=== PATIENT | male | born 1970 | race African-American/Black ===

== ENCOUNTER 2016-08-30 11:08 | Inpatient (IN) | payer OTHER, MEDICARE ==
[~2016-08-30] VITALS: Ht 190.5 cm; Wt 98.9 kg
[~2016-08-30 11:08] MED LIST: ACAMPROSATE CA333 M1 PO; ATIVAN0.5 MG PO; BENZTROPINE MESY2 M1 PO; LITHIUM CARBON300 M6 PO; MIRALAX17 GM PO; NEURONTIN300 M1 PO; OLANZAPINE15 M1 PO; RISPERIDONE2 MG PO; TRAZODONE HCL100 M1 PO; ZYPREXA7.5 M1 PO
[2016-08-30] MEDS ORDERED: HALOPERIDOL2 M1 PO (11:30)
[2016-08-30] MEDS ORDERED: QUETIAPINE FUM400 M1 PO (11:33)
[2016-08-30] MEDS ORDERED: QUETIAPINE FUMA50 M1 PO (11:33)
[2016-08-30 12:20] LABS: ABSOLUTE BASOPHIL COUNT 0 /CUMM (0.0-0.2); ABSOLUTE EOSINOPHIL COUNT 0.1 /CUMM (0.0-0.7); ABSOLUTE GRANULOCYTE CT 3.6 /CUMM (1.4-6.5); ABSOLUTE LYMPH COUNT 2.4 /CUMM (1.2-3.4); ABSOLUTE MONOCYTE COUNT 0.8 /CUMM (0.10-0.60); BASOPHIL % 0.3 % (0.0-2.0); GRANULOCYTE % 52.2 % (42.2-75.2); HEMATOCRIT 41.3 % (42-52); MEAN CORPUSCULAR HGB 28.2 PG (27.0-31.0); MEAN CORPUSCULAR HGB CONC 32.5 G/DL (33.0-37.0); MEAN CORPUSCULAR VOLUME 86.8 FL (80.0-94.0); MEAN PLATELET VOLUME 8.5 FL (7.4-10.4); PLATELET COUNT 281 /CUMM (130-400); RED BLOOD CELL CT 4.76 /CUMM (4.70-6.10); WHITE BLOOD CELL COUNT 6.8 /CUMM (4.8-10.8)
--- NOTE | 2016-08-30 14:03 | ED PSYCHIATRIC COMPLAINT ---
History of Present Illness General Chief Complaint: ETOH/Drug Related Complaint Stated Complaint: BIBA, ETOH/LETHARGY Source: patient, EMS Exam Limitations: clinical condition, poor historian, intoxication Allergies Coded Allergies: codeine (Intermediate, HIVES 08/30/16) amoxicillin (UNKNOWN 08/30/16) desipramine (HIVES 08/30/16) haloperidol (LARYNGEAL DYSTONIA 08/30/16) Reconcile Medications Acamprosate Calcium 333 MG TABLET.DR 2 TAB PO TID ALCOHOL WITHDRAWAL ( Reported) Benztropine Mesylate 2 MG TABLET 1 TAB PO TID ANXIETY (Reported) Gabapentin (Neurontin) 300 MG CAPSULE 1 CAP PO 4 TIMES/DAY NERVES (Reported) Haloperidol 2 MG TABLET 1 TAB PO DAILY MENTAL HEALTH (Reported) Marrowstone Carbonate ([place] Carbonate ER) 300 MG TABLET.ER 1 TAB PO DAILY BIPOLAR (Reported) [place] Carbonate ([place] Carbonate ER) 300 MG TABLET.ER 2 TAB PO QPM BIPOLAR (Reported) Olanzapine (Zyprexa) 7.5 MG TABLET 1 TAB PO BID MENTAL HEALTH (Reported) Olanzapine 15 MG TABLET 1 TAB PO QPM MENTAL HEALTH (Reported) Quetiapine Fumarate 400 MG TABLET 1 TAB PO QPM MENTAL HEALTH (Reported) Quetiapine Fumarate 50 MG TABLET 1 TAB PO QPM MENTAL HEALTH (Reported) Trazodone HCl 100 MG TABLET 2 TAB PO QPM SLEEP (Reported) Triage Note: BIBA. 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 PT ALERT TO NAME AND CITY ONLY. IS DROWSY UPON ARRIVAL. MEDICS HAVE #18 TO LAC, EKG SINUS TACH RATE OF 120'S. Triage Nurses Notes Reviewed? yes Onset: Abrupt Duration: hour(s):, constant, continues in ED Timing: single episode today HPI: 46-year-old male with past medical history of bipolar depression brought in by ambulance for evaluation of lethargy. Patient was found by a psychiatric nurse this morning very lethargic with a empty bottle of vodka next to him. Patient has a long history of alcohol abuse and is on unknown medication to prevent him from drinking. Patient currently denies any pain but states she is very tired. He denies any other drug use. He states that he "drank too much today". Denies any suicidal ideation, homicidal ideation, chest pain, shortness of breath, abdominal pain, fevers, or any other associated symptoms. He states he's been taking his medications as directed. He also reports that he had a period of sobriety for a few months before he started drinking again 3 days ago. (JESUS EASTON PA-C) Vital Signs & Intake/Output Vital Signs & Intake/Output Vital Signs Date Time Temp Pulse Resp B/P B/P Pulse O2 O2 Flow FiO2 Mean Ox Delivery Rate 08/30 1932 98.0 83 16 131/79 99 Room Air 08/30 1701 96 19 141/91 99 Room Air 08/30 1305 97.1 98 114/70 97 08/30 1120 98.7 100 20 144/88 98 Room Air Past History Travel History Traveled to [place] past 21 day No Medical History Any Pertinent Medical History? 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 No (JESUS EASTON PA-C) Review of Systems Review of Systems Constitutional: Reports: weakness. EENTM: Reports: no symptoms. Respiratory: Reports: no symptoms. Cardiovascular: Reports: no symptoms. GI: Reports: no symptoms. Genitourinary: Reports: no symptoms. Musculoskeletal: Reports: no symptoms. Skin: Reports: no symptoms. Neurological/Psychological: Reports: see HPI, confusion. Hematologic/Endocrine: Reports: no symptoms. Immunologic/Allergic: Reports: no symptoms. All Other Systems: Reviewed and Negative (JESUS EASTON PA-C) Physical Exam Physical Exam General Appearance: well developed/nourished, no apparent distress, awake, lethargic, intoxicated Neurological/Psychiatric: no motor/sensory deficits, awake, agitated, normal mood/affect, calm, oriented x 3 Comments: General: Hemodynamically stable. Afebrile. Well-developed well-nourished person in no acute distress. Head: Atraumatic, normocephalic Eyes: EOMI bilaterally, PERRLA, conjunctiva are not injected, no discharge, no nystagmus, fundus grossly normal bilaterally Nose: Atraumatic, no rhinorrhea, mucosa is not erythematous, no epistaxis. Sinuses are non-tender Ears: TM pearly castro color bilaterally, external canal is clear, no discharge, hearing is normal Mouth: Appropriate dentition, no gingival bleeding, moist mucus membranes, no oral lesions, tonsils not erythematous or enlarged and free of exudate. Uvula rises midline. Neck: Supple, full active ROM, no lymphadenopathy, no midline tenderness to palpation, no thyromegaly, no tracheal deviation. Back: Non-tender, full active ROM, no scoliosis, no CVA tenderness Cardiovascular: regular rate and rhythm, no murmurs, rubs, or gallops. No JVD Respiratory: Chest is nontender. Regular respiratory rate and effort. No accessory muscle use. Lungs clear to auscultation bilaterally. Abdomen: Soft, non-tender, non-distended, no organomegaly. No rebound tenderness or guarding. Normoactive bowel sounds. Extremities: No edema. No gross deformities. No joint swelling. No calf swelling or tenderness. Full active and passive ROM. Strength 5/5 in upper and lower extremities. Peripheral pulses 2+ bilaterally, Patellar DTR 2+ Skin: Warm and dry. Appropriate turgor. No lesions or bruising. No appreciable rash on exposed skin. SAD PERSONS Done? patient not suicidal (JEMMA ALCANTAR,JESUS) Progress Differential Diagnosis: drug intoxication, drug overdose, drug withdrawal, electrolyte abnormality, hypoglycemia, hypothyroidism, IC hem/mass/tumor, meningitis, arrythmia Diagnostic Imaging: Viewed by Me: CT Scan. Discussed w/RAD: CT Scan. Initial ED EKG: no ST T wave changes, sinus tach Comments: PATIENT: MAURA DALEY PRESENT AGE: 46 PATIENT ACCOUNT NO: [id number] : 70 LOCATION: [facility] [place] ORDERING PHYSICIAN: JESUS EASTON PA-C SERVICE DATE: 08/30/163357 EXAM TYPE: CAT - CT HEAD WO IV CONTRAST EXAMINATION: CT HEAD WITHOUT CONTRAST CLINICAL INFORMATION: Altered mental status, lethargy. COMPARISON: 05/04/2014. TECHNIQUE: Contiguous axial images of the brain were obtained without IV contrast. DLP: 620 mGy-cm. FINDINGS: There are no pathologic extra-axial fluid collections. The lateral, third, fourth ventricles are nondilated and concordant with the appearance of the sulci. There is no evidence for acute intraparenchymal hemorrhage or infarct. There is neither mass nor mass effect. There is no shift of midline structures. The paranasal sinuses and mastoid air cells are clear. There are no osseous lesions. IMPRESSION: No evidence for acute intracranial injury. DICTATED BY: OLVIN CHERY MD DATE/TIME DICTATED:08/30/161502 DRY END OPERATOR:NAOMIE DATE/TIME TRANSCRIBED:08/30/161502 PATIENT: MAURA DALEY PRESENT AGE: 46 PATIENT ACCOUNT NO: [id number] : 70 LOCATION: [facility] [place] ORDERING PHYSICIAN: JESUS EASTON PA-C SERVICE DATE: 08/30/16 EXAM TYPE: CAT - CTA CHEST-PULMONARY EMBOLISM EXAMINATION: CT PULMONARY EMBOLISM STUDY CLINICAL INFORMATION: Tachypnea. Shortness of breath. COMPARISON: 05/04/2014.. TECHNIQUE: Contiguous helical images of the chest were obtained following the administration of IV contrast. Multiplanar reconstructions were performed. MIPS were obtained and reviewed. DLP: 547 mGy-cm. CONTRAST: 95 mL of Optiray 350 were administered without incident. FINDINGS: The heart is of normal size. There is no pericardial effusion. The great vessels are unremarkable. Specifically, there is no pulmonary arterial filling defect. There are filling defects present within the branches of the right lower lobe pulmonary artery. There are no chest wall masses. Review of lung windows demonstrates that there are neither pleural effusions nor pneumothoraces. There are no consolidations. There are no pulmonary parenchymal nodules. Limited evaluation of the upper abdomen demonstrates that the liver is of normal size and attenuation without focal lesions. Normal adrenal glands are identified. IMPRESSION: Pulmonary embolism within the branches of the right lower lobe pulmonary artery. The aforementioned was communicated to Dr. Jesus Easton at 1647 hours. DICTATED BY: OLVIN CHERY MD DATE/TIME DICTATED:08/30/161635 DRY END OPERATOR:NAOMIE DATE/TIME TRANSCRIBED:08/30/161635 CONFIDENTIAL, DO NOT COPY WITHOUT APPROPRIATE AUTHORIZATION. <Electronically signed in Other Vendor System> SIGNED BY: OLVIN CHERY MD 08/30/16 1651 (JEMMA ALCANTAR,JESUS) Plan of Care: Orders Procedure Date/time Status Regular Diet 08/31 B Active Admit to inpatient 08/30 1826 Active Add-on Test (ER Only) 08/30 1711 Active Add-on Test (ER Only) 08/30 1453 Active Add-on Test (ER Only) 08/30 1437 Active EKG 08/30 1435 Active URINALYSIS 08/30 1432 Complete ACETOMINOPHEN 08/30 1200 Complete THYROID STIMULATING HORMONE 08/30 1200 Complete TROPONIN LEVEL 08/30 1200 Complete SALICYLATE 08/30 1200 Complete PARTIAL THROMBOPLASTIN TIME 08/30 1200 Complete PROTHROMBIN TIME 08/30 1200 Complete MAGNESIUM 08/30 1200 Complete LITHIUM 08/30 1200 Complete D-DIMER 08/30 1200 Complete URINE DRUG SCREEN FOR ER ONLY 08/30 1156 Complete ETHANOL 08/30 1156 Complete COMPREHENSIVE METABOLIC PANEL 08/30 1156 Complete CBC WITHOUT DIFFERENTIAL 08/30 1156 Complete Current Medications Sig/Sebastian Start time Last Medication Dose Stop Time Status Admin Cyanocobalamin/ 1 BAG ONCE ONE 08/30 194 UNVr Thiamine/Pyridoxine 08/31 0344 (Vitamin in I.V.) Dextrose/Water 1,000 ML (D5W 1000) Heparin Sodium/ 25,000 UNIT Q24H 08/30 1714 UNVr 08/30 Dextrose 1757 (Heparin) Dextrose/Water 500 ML (D5W) Laboratory Tests 08/30/16 1432: Urine Opiates Screen < 100.00, Methadone Screen 45, Barbiturate Screen < 60, Ur Phencyclidine Scrn < 6.00, Amphetamines Screen < 100, U Benzodiazepines Scrn < 85, Urine Cocaine Screen < 50, Urine Cannabis Screen < 5.00, Urine Color YEL, Urine Clarity CLEAR, Urine pH 7.5, Ur Specific [place] 1.010, Urine Protein NEG, Urine Ketones NEG, Urine Nitrite NEG, Urine Bilirubin NEG, Urine Urobilinogen 0.2, Ur Leukocyte Esterase NEG, Ur Microscopic SEDIMENT EXAMINED, Urine RBC 1-3, Urine WBC RARE, Hyaline Casts RARE H, Urine Mucus RARE, Urine Hemoglobin TRACE- LYSED H, Urine Glucose NEG 08/30/16 1200: Anion Gap 16, Estimated GFR > 60, BUN/Creatinine Ratio 7.5, Glucose 109 H, Calcium 10.2, Magnesium 2.1, Total Bilirubin 0.7, AST 23, ALT 37, Alkaline Phosphatase 79, Troponin I < 0.01, Total Protein 8.2, Albumin 5.1 H, Globulin 3.1, Albumin/Globulin Ratio 1.6, TSH 1.970, PT 13.0 H, INR 1.24 H, APTT 29, D- Dimer High Sensitivty 746 H, CBC w Diff NO MAN DIFF REQ, RBC 4.76, MCV 86.8, MCH 28.2, RDW 16.0 H, MPV 8.5, Gran % 52.2, Lymphocytes % 34.5, Monocytes % 12.0 H, Eosinophils % 1.0, Basophils % 0.3, Absolute Granulocytes 3.6, Absolute Lymphocytes 2.4, Absolute Monocytes 0.8 H, Absolute Eosinophils 0.1, Absolute Basophils 0, PUBS MCHC 32.5 L, Salicylates < 1.0, Acetaminophen < 10.0 L, Marrowstone 0.7, Serum Alcohol 36.0 2:30 PM: Patient seen and evaluated. He'll be given a liter of normal saline and she is slightly tachycardic. We'll also have basic blood work CT scan of his head EKG and additional blood work to evaluate altered mental status and tachycardia. 4 PM: Patient's d-dimer came back elevated TO 746. We'll get a CTA to rule out pulmonary embolism as patient was tachycardic and short of breath. 5 PM: CTA was positive for pulmonary embolism. Patient was moved to a monitored room. He'll be heparinized PTT and INR ordered. Rectal exam was done and stool is heme-negative. Patient will be admitted for further evaluation. No signs of right heart strain. Patient additionally will need to have [place] monitoring as he has a history of alcohol abuse. Hospitalist paged. Patient will be admitted to general medicine. (JESUS EASTON PA-C) Departure Departure Disposition: STILL A PATIENT Condition: Stable Clinical Impression Primary Impression: Pulmonary embolism Qualifiers: Pulmonary embolism type: other Chronicity: acute Acute cor pulmonale presence: without acute cor pulmonale Qualified Code: I26.99 - Other pulmonary embolism without acute cor pulmonale Referrals: KERA ALVARENGA MD (PCP/Family) Departure Forms: Customer Survey General Discharge Information Admission Note Spoke With: JENNIFER HERNDON MD Documentation of Exam: Documentation of any treatments & extenuating circumstances including Concerns Regarding Discharge (functional status, medication knowledge or non-compliance, living conditions, etc.) that warrant an admission rather than observation: [ Monitoring of vital signs, serial labs, hypercoagulability workup, medication adjustment, IV heparin, cardiology consult, pulmonary consult, CIWA monitoring] (JEMMA ALCANTAR,JESUS) PA/BLUEPRINT CLERK Co-Sign Statement Statement: ED Attending supervision documentation- [] I saw and evaluated the patient. I have also reviewed all the pertinent lab results and diagnostic results. I agree with the findings and the plan of care as documented in the PA's/BLUEPRINT CLERK's documentation. [X] I have reviewed the ED Record and agree with the PA's/BLUEPRINT CLERK's documentation. [] Additions or exceptions (if any) to the PAs/BLUEPRINT CLERK's note and plan are summarized below: [] (LILLIANA RIBEIRO,DEBBIE Mcmullen)
[2016-08-30 14:55] LABS: LITHIUM 0.7 mmol/L (0.6-1.2)
--- NOTE | 2016-08-30 15:19 | CT SCAN REPORT ---
EXAMINATION: CT HEAD WITHOUT CONTRAST CLINICAL INFORMATION: Altered mental status, lethargy. COMPARISON: 05/04/2014. TECHNIQUE: Contiguous axial images of the brain were obtained without IV contrast. DLP: 620 mGy-cm. FINDINGS: There are no pathologic extra-axial fluid collections. The lateral, third, fourth ventricles are nondilated and concordant with the appearance of the sulci. There is no evidence for acute intraparenchymal hemorrhage or infarct. There is neither mass nor mass effect. There is no shift of midline structures. The paranasal sinuses and mastoid air cells are clear. There are no osseous lesions. IMPRESSION: No evidence for acute intracranial injury.
--- NOTE | 2016-08-30 16:51 | CT SCAN REPORT ---
EXAMINATION: CT PULMONARY EMBOLISM STUDY CLINICAL INFORMATION: Tachypnea. Shortness of breath. COMPARISON: 05/04/2014.. TECHNIQUE: Contiguous helical images of the chest were obtained following the administration of IV contrast. Multiplanar reconstructions were performed. MIPS were obtained and reviewed. DLP: 547 mGy-cm. CONTRAST: 95 mL of Optiray 350 were administered without incident. FINDINGS: The heart is of normal size. There is no pericardial effusion. The great vessels are unremarkable. Specifically, there is no pulmonary arterial filling defect. There are filling defects present within the branches of the right lower lobe pulmonary artery. There are no chest wall masses. Review of lung windows demonstrates that there are neither pleural effusions nor pneumothoraces. There are no consolidations. There are no pulmonary parenchymal nodules. Limited evaluation of the upper abdomen demonstrates that the liver is of normal size and attenuation without focal lesions. Normal adrenal glands are identified. IMPRESSION: Pulmonary embolism within the branches of the right lower lobe pulmonary artery. The aforementioned was communicated to Dr. Dedrick Suarez at 1647 hours.
[2016-08-30 17:21] LABS: PTT 29 SEC (25-37)
--- NOTE | 2016-08-30 20:03 | History & Physical ---
BROOKE RIBEIRO,[facility] 08/30/16 2002: General Information and HPI MD Statement: I have seen and personally examined MAURA DALEY and documented this H&P. The patient is a 46 year old M who presented with a patient stated chief complaint of [too much alcohol]. Source of Information: patient Exam Limitations: confusion History of Present Illness: Patient is a 46 yo M with pmhx of bipolar, schizophrenia, depression, last admitted 05/04/14 for etoh withdrawal presenting for altered MS after being found very lethargic by his visiting nurse with a bottle of vodka next to the patient. The patient stated today that he drank pint of vodka and was smoking cigarettes. He then fed his cat and dog and then "lost it". The patient states that he passed out and does not remember anything since feeding his pets. When asked if he knew the reason why he was being admitted in the hospital, the patient states he was here for drinking too much alcohol. When the patient was asked again about what happened by the resident, the patient stated he was smoking weed, drinking, and taking his meds simultaneously.The patient did not remember seeing our attending who was briefly in the room with me during our encounter before she left. When I asked how often the patient drinks alcohol he seemed confused. I then asked whether he drinks every day, 3-4 days/week or 4-5 times a week, the patient stated he did not drink that often. He said that he drinks "once in a blue morales". However, he told our attending that he has been sober for the past 2 nights but was drinking for the past 6 days straight prior to his sobriety period. Patient reports no suicidal ideation. He states he has a great relationship with his girlfriend. He is currently unemployed on Social Security. He has a visiting nurse to help him with his healthcare. Allergies/Medications Allergies: Coded Allergies: codeine (Intermediate, HIVES 08/30/16) amoxicillin (UNKNOWN 08/30/16) desipramine (HIVES 08/30/16) Home Med list Acamprosate Calcium 333 MG TABLET. 2 TAB PO TID ALCOHOL WITHDRAWAL ( Reported) Benztropine Mesylate 2 MG TABLET 1 TAB PO TID ANXIETY (Reported) Gabapentin (Neurontin) 300 MG CAPSULE 1 CAP PO 4 TIMES/DAY NERVES (Reported) Haloperidol 2 MG TABLET 1 TAB PO DAILY MENTAL HEALTH (Reported) Frost Carbonate (Frost Carbonate ER) 300 MG TABLET.ER 1 TAB PO DAILY BIPOLAR (Reported) Frost Carbonate (Frost Carbonate ER) 300 MG TABLET.ER 2 TAB PO QPM BIPOLAR (Reported) Olanzapine (Zyprexa) 7.5 MG TABLET 1 TAB PO BID MENTAL HEALTH (Reported) Olanzapine 15 MG TABLET 1 TAB PO QPM MENTAL HEALTH (Reported) Quetiapine Fumarate 400 MG TABLET 1 TAB PO QPM MENTAL HEALTH (Reported) Quetiapine Fumarate 50 MG TABLET 1 TAB PO QPM MENTAL HEALTH (Reported) Trazodone HCl 100 MG TABLET 2 TAB PO QPM SLEEP (Reported) Past History Travel History Traveled to [place] past 21 day No Medical History Neurological: NONE EENT: NONE Cardiovascular: NONE Respiratory: asthma Gastrointestinal: NONE Hepatic: NONE Renal: NONE Musculoskeletal: NONE Psychiatric: bipolar disease, schizoprenia, depression Endocrine: NONE Blood Disorders: NONE Cancer(s): NONE N[employer]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 but seems .5 -1pint vodka/day Illicit Drug Use: marijuana Employment History Employment Unemployed Review of Systems Review of Systems Constitutional: Denies: chills, diaphoresis, fever. EENTM: Denies: visual changes. Cardiovascular: Denies: chest pain. Respiratory: Denies: cough, short of breath. GI: Denies: abdominal pain, nausea, vomiting. Genitourinary: Denies: dysuria, frequency, hematuria. Exam & Diagnostic Data Last 24 Hrs of Vital Signs/I&O Vital Signs Date Time Temp Pulse Resp B/P B/P Pulse O2 O2 Flow FiO2 Mean Ox Delivery Rate 08/31 0027 98.4 79 20 128/88 97 Room Air 08/307 98.6 75 20 130/92 97 08/30 2121 98.2 83 16 132/74 97 Room Air 08/30 1932 98.0 83 16 131/79 99 Room Air 08/30 1701 96 19 141/91 99 Room Air 08/30 1305 97.1 98 114/70 97 08/30 1120 98.7 100 20 144/88 98 Room Air Intake & Output 08/31 0800 08/31 0000 08/30 1600 Intake Total 1000 Output Total 800 Balance -800 1000 Intake, IV 1000 Output, Urine 800 Patient 220 lb Weight Weight Estimated Measurement Method Physical Exam General Appearance Alert, Oriented X3, Cooperative, No Acute Distress, patient was oriented to person, place, month, and president. however patient appears lethargic and takes longer than normal to answer questions. he has different responses regarding his HPI for his etoh and tobacco use HEENT Atraumatic, PERRLA, EOMI, CN2-12 intact, dry oral mucosa Neck Supple, no tracheal devitation, tenderness, or lymphadenopathy Cardiovascular Regular Rate, Normal S1, Normal S2 Lungs Clear to Auscultation, Normal Air Movement Abdomen Normal Bowel Sounds, Soft, No Tenderness, no abd scars Neurological dyskinesia of eye and hands. patient states this is a chronic issue Extremities No Edema, Normal Pulses, 5/5 peripheral strength b/l for UE and LE Last 24 Hrs of Labs/[place]: Laboratory Tests 08/31/16 0005: APTT Pending 08/30/16 1432: Urine Opiates Screen < 100.00, Methadone Screen 45, Barbiturate Screen < 60, Ur Phencyclidine Scrn < 6.00, Amphetamines Screen < 100, U Benzodiazepines Scrn < 85, Urine Cocaine Screen < 50, Urine Cannabis Screen < 5.00, Urine Color YEL, Urine Clarity CLEAR, Urine pH 7.5, Ur Specific [place] 1.010, Urine Protein NEG, Urine Ketones NEG, Urine Nitrite NEG, Urine Bilirubin NEG, Urine Urobilinogen 0.2, Ur Leukocyte Esterase NEG, Ur Microscopic SEDIMENT EXAMINED, Urine RBC 1-3, Urine WBC RARE, Hyaline Casts RARE H, Urine Mucus RARE, Urine Hemoglobin TRACE- LYSED H, Urine Glucose NEG 08/30/16 1200: Anion Gap 16, Estimated GFR > 60, BUN/Creatinine Ratio 7.5, Glucose 109 H, Calcium 10.2, Magnesium 2.1, Total Bilirubin 0.7, AST 23, ALT 37, Alkaline Phosphatase 79, Troponin I < 0.01, Total Protein 8.2, Albumin 5.1 H, Globulin 3.1, Albumin/Globulin Ratio 1.6, TSH 1.970, PT 13.0 H, INR 1.24 H, APTT 29, D- Dimer High Sensitivty 746 H, CBC w Diff NO MAN DIFF REQ, RBC 4.76, MCV 86.8, MCH 28.2, RDW 16.0 H, MPV 8.5, Gran % 52.2, Lymphocytes % 34.5, Monocytes % 12.0 H, Eosinophils % 1.0, Basophils % 0.3, Absolute Granulocytes 3.6, Absolute Lymphocytes 2.4, Absolute Monocytes 0.8 H, Absolute Eosinophils 0.1, Absolute Basophils 0, PUBS MCHC 32.5 L, Salicylates < 1.0, Acetaminophen < 10.0 L, Frost 0.7, Serum Alcohol 36.0 Diagnostic Data Other Results CTA FINDINGS: The heart is of normal size. There is no pericardial effusion. The great vessels are unremarkable. Specifically, there is no pulmonary arterial filling defect. There are filling defects present within the branches of the right lower lobe pulmonary artery. There are no chest wall masses. Review of lung windows demonstrates that there are neither pleural effusions nor pneumothoraces. There are no consolidations. There are no pulmonary parenchymal nodules. Limited evaluation of the upper abdomen demonstrates that the liver is of normal size and attenuation without focal lesions. Normal adrenal glands are identified. IMPRESSION: Pulmonary embolism within the branches of the right lower lobe pulmonary artery. CT HEAD There are no pathologic extra-axial fluid collections. The lateral, third, fourth ventricles are nondilated and concordant with the appearance of the sulci. There is no evidence for acute intraparenchymal hemorrhage or infarct. There is neither mass nor mass effect. There is no shift of midline structures. The paranasal sinuses and mastoid air cells are clear. There are no osseous lesions. IMPRESSION: No evidence for acute intracranial injury Assessment/Plan Assessment: Patient is a 46 yo M with pmhx of bipolar, schizophrenia, depression, last admitted 05/04/14 for etoh withdrawal presenting for lethragy due to simultaneous drinking pint of vodka, smoking cigarettes/weed, and taking his medications and also found to have a PE of his right lower lobe pulmonary artery. As Ranked By This Provider Problem List: 1. Pulmonary embolism Assessment/Plan Patient is a 46 yo M with pmhx of bipolar, schizophrenia, depression, last admitted 05/04/14 for etoh withdrawal presenting for lethragy due to simultaneous drinking pint of vodka, smoking cigarettes/weed, and taking his medications and also found to have a PE of his right lower lobe pulmonary artery. His d- dimer was 746,PT 13, INR 1.24. At this time the cause of his PE is unknown. He did state to our attending that he has a twin brother with colon cancer. We will need to confirm this history from the patient's girlfriend. The patient states that he has never had a colonoscopy. The patient denies any trauma, immobility/recent travel, any history of previous DVTs/PE/coagulopathies, any family history of clots,or any hormone use. His initial troponins were less than 0.01. We will place a consult with hematology oncology for further management. We will also get a repeat EKG, troponins and an echocardiogram. We will treat the patient with heparin for his PE and transition to apixaban tomorrow. Other possible causes of his blood counts may be unknown genetic causes such as: Factor V Leiden, prothrombin mutation, hyper homocystinemia, decrease levels of anti-thrombin/protein C/protein S. The patient will most likely need a colonoscopy if family history is + for colon cancer. -f/u cbc,bmp -guaiac all stools, monitor H/H and plt count while on heparin -Confirm family history of colon cancer?, outpt colonoscopy needed if positive FH -Follow-up repeat EKG, troponins -place echocardiogram -Continue heparin and transition to apixaban tomorrow -f/u heme onc consult Qualifiers Pulmonary embolism type: other Chronicity: acute Acute cor pulmonale presence: without acute cor pulmonale Qualified Code: I26.99 - Other pulmonary embolism without acute cor pulmonale 2. Alcohol abuse Assessment/Plan The patient was last admitted to [facility] on 05/04/2014 for alcohol detoxification. We will start him on alcohol detoxification with CIWA protocol and Ativan. We will also start neuro checks and D5 1 liter banana bag with folate, thiamine, B12. The patient will need a social work consult. -Continue banana bag, replete lytes as needed -Continue CIWA protocol, neurochecks -Ativan 2 mg every 6 hours by mouth -f/u social work consult 3. Bipolar disorder Assessment/Plan The patient has a history of bipolar disorder maintained on lithium. We will continue him on his home dose of lithium and check his blood lithium levels. The patient will need a psych consult for futher management. -Follow-up lithium levels -Continue lithium 600 mg by mouth at nighttime -f/u psych consult 4. Schizophrenia Assessment/Plan The patient has a history of schizophrenia. We'll continue him on his home medications. We will need a psych consult for his psychiatric disorders to help with management. -Olanzapine 15 mg by mouth at nighttime and olanzapine 7.5 mg by mouth twice a day -Quetiapine 450 mg by mouth at nighttime -Benztropine 2 mg by mouth 3 times a day -Haloperidol 2 mg by mouth daily -f/u psych consult as stated above. 5. Nicotine dependence Assessment/Plan The patient is a current smoker. He was unclear about how many cigarettes he smokes. We will begin him on a nicotine patch. -continue nicotine patch 14mg daily 6. Neuropathic pain Assessment/Plan The patient has a history of neuropathic pain. We will continue his home medications. -continue gabapentin 300mg 4 times per day 7. DVT prophylaxis Assessment/Plan Continue heparin for PE 8. Full code status Core Measures/Miscellaneous Acute Coronary Syndrome ACS Diagnosis: No Cerebrovascular Accident CVA/TIA Diagnosis: No Congestive Heart Failure CHF Diagnosis: No VTE (View Protocol) VTE Risk Factors: Acute medical illness, Age > 40, Smoking No [facility] VTE prophylaxis d/t: No contraindications No VTE Pharm Prophylaxis d/t: No contraindications VTE Diagnosis: Yes VTE Type: Pulmonary Embolism VTE Confirmed by (Test): CT CHEST ANGIOGRAM Sepsis (View Protocol) Severe Sepsis Present: No Septic Shock Septic Shock Present: No Miscellaneous Documentation Attending Case Discussed With: JENNIFER HERNDON MD Primary Care Physician: KERA ALVARENGA MD Patient sees these Specialists NA Level of Patient Care: General Medicine WILLIAN JOHN MD 08/30/16 2006: Resident Review Statement Resident Statement: examined this patient, discussed with development intern, agreed with development intern Other Findings: Mr Daley is a 46-year-old male with a past medical history of alcohol abuse, bipolar, schizophrenia, depression who was brought into the emergency department after being found very lethargic by visiting nurse. Patient states that he normally has a history of consuming alcohol on a daily basis (drinks between 1/2 - 1 pint of vodka per day), however 12 hours prior to admission he consumed an excessive amount of alcohol stating that "he felt like it". Patient also reports that his girlfriend and her son has travelled out of town. Briefly spoke with the patient's girlfriend on the telephone who was travelling in [place] who stated that this patient is a history of consuming excessive alcohol when she leaves town. She stated that the patient may have been admitted to [facility] over the last few months for alcohol withdrawal. Patient does have a history of alcohol abuse. He was last admitted to [facility] where he underwent alcohol detoxification on 05/04/2016. At the time of clinical interaction, he denied any suicidal or homicidal ideation. He Is a current every day smoker. He denies any recreational drug use. Denies any family history of any acute illnesses although did mention to the attending physician that he has a twin brother who has colon cancer. ROS: Patient denied any chest pain, fever, chills, nausea, vomiting. He denied any shortness of breath, and dyspnea on exertion. E: Temperature for the time of admission 98.7, RR 20, BP 144/88, heart rate 100 saturating 98% room air. HEENT: extraocular motion intact, no nystagmus. Pupils equally round and reactive to light and accommodation. Nose is atraumatic. External auditory canal and Tympanic membranes clear. Pharynx normal. No swelling or edema. Mucous membranes dry. Neck: Supple, no lymphadenopathy, normal range of motion without pain or tenderness Back: Nontender. Cardiovascular: Regular rate and rhythm no murmurs rubs or gallops. Respiratory: Chest nontender. Abdomen: Soft, tender with light palpation. nondistended, no appreciable organomegaly. Bowel sounds normal. No ascites, no rebound or guarding. Extremity: No edema, no calf tenderness to palpation, normal and equal pulses. Neuro: Alert oriented to person and place,motor sensory normal, CN II to XII wnl. Pupils Dilated ++ L: The time of admission WBC 6.8. H&H 13.4/41.3. Platelets 281. PT 13.0, INR 1.24, d-dimer was done owing to tachycardia which is 746. Sodium 147. Chloride 111. Carbon dioxide 19. Anion gap 16. Cr 1.2. I: Chest CTA: Pulmonary embolism within the branches of the right lower lobe pulmonary artery. Head CT: IMPRESSION: No evidence for acute intracranial injury. A/P Mr Daley is a 46-year-old male with a past medical history of alcohol abuse, bipolar, schizophrenia, depression who was brought into the emergency department after being found very lethargic by visiting nurse. #Altered Mental Status Patient is likely altered owing to extensive use of alcohol in the setting of multiple drug interactions which he takes for his mood disorders. Hold all medications to a.m. If the patient sedated can continue home medications. Check lithium levels in a.m. Begin the patient on scheduled Ativan 2.0 milligrams every 4 Hours. Ativan drip as needed when necessary, for CIWA > 8. Continue multivitamin, continue folate, Banana bag given at the time of admission. Social work consultation in a.m. And passed bedside swallow done at the time the emergency department. We'll maintain seizure precautions and aspiration precautions. #Acute pulmonary embolism. The time of our interaction he was asymptomatic. Denies any recent travel, immobility, history of cancer or any trauma and injury. Obtain hematology and oncology consultation in a.m. Patient might be eligible to be transitioned to Eliquis in a.m. Would likely need therapy for 6 months. Echocardiogram in a.m. to look for any evidence of right-sided heart strain. Patient will likely need to follow-up with primary care physician and be considered for coloscopy if family history is positive for oncologic disease as mentioned during clinical encounter questionable twin brother. #History of depression, bipolar, mood disorder. Continue haloperidol, Zyprexa, lithium. Follow-up lithium levels in a.m. Target lithium level should be between 0.4-0.8 Obtain psych consult in a.m. #History of Pain Neuropathic pain continue gabapentin. #History smoking. Continue nicotine patch when necessary. #DVT prophylaxis Heparin drip. #Code Full code YANICK RIBEIRO, [facility] 08/31/16 0010: Attending MD Review Statement Attending Statement Attending MD Statement: examined this patient, discuss w/resident/PA/LABOR RELATIONS REPRESENTATIVE, agreed w/resident/PA/LABOR RELATIONS REPRESENTATIVE Attending Assessment/Plan: 46 yo M smoker, with h/o alcohol abuse, bipolar disorder, PTSD, asthma, is BIBA after visiting nurse found him to be lethargic with change in mental status. Patient is awake, alert, oriented x2, but his history is vague. He reports not drinking too much but then states he drinks 1/2 to 1 pint of vodka daily with few days of sobreity in between. His last drink was this morning. He denies h/o alcohol withdrawal seizures. Denies drug use, no SI or HI. He has a visiting nurse who comes in everyday to give his meds. Last detox was at [facility] 2014. He has what seems like 'dystonia' probably from antipsychotic med use. Patient reports that this is chronic. Patient states he has been active and has not had any period of immobility. He denies personal or family h/o VTE. No recent travel , hormone use or cancer diagnosis. He does reports h/o colon cancer in his twin brother (we need to validate this information with his ). Patient denies chest pain, dyspnea, lightheadedness or palpitations. VSS. Labs: H/H 13.4/41.3, INR 1.24, D-dimer 746, Na 147, bicarb 19, creat 1.2, trop neg, TSH 1.970. UA n eg. Utox neg. Tylenol and salicylate level neg. Alcohol 36, Frost level 0.7. Head CT: neg. CTA: PE within branches of right lower lobe pulmonary artery. EKG: Sinus tachycardia. 1. Acute unprovoked PE. GM admit, IV heparin per PTT protocol. Guaiac all stools , monitor H/H and Platelet count while on heparin. Serial EKG and troponin to rule out ACS. Obtain echo to assess for right heart strain. Hematology consult in AM. Plan to transition to NOACs in AM. 2. Lethargy, ?altered mentation in the setting of alcohol use, Utox is essentially negative. Also, alcohol levels are not that high. Drug induced encephalopathy given patient is on multiple psych meds. We will place him on CIWA protocol, neurochecks, IV ativan per CIWA, PO scheduled ativan. Banana bag. Get Psych and social work consult. Resume psych meds as per their recommendations. DVT ppx IV heparin. Full code.
[2016-08-30 22:37] VITALS: BP 130/92
[2016-08-31] VITALS (8 sets, daily range): BP systolic 106–128; BP diastolic 76–88
--- NOTE | 2016-08-31 00:10 | Admission Certification ---
Admission Certification Certification Statement - As attending physician, I certify that at the time of - admission, based on clinical presentation, severity of - symptoms, need for further diagnostic testing and - therapeutic interventions, and risk of adverse outcomes - without in-hospital treatment, in my clinical assessment, - this patient requires an acute hospital stay for a minimum - of two nights or longer. I have also considered psychsocial - factors such as support system, advanced age, financial - issues, cognitive issues, and failed out-patient treatments, - past re-admission history, safety of patient, and lack of - compliance as applicable. Specific rationale supporting this admission is: Alcohol detox, new unprovoked pulmonary embolism.
[2016-08-31 01:10] LABS: PTT 81 SEC (25-37)
--- NOTE | 2016-08-31 07:11 | Cons- Hematology ---
General Information and HPI Consulting Request Date of Consult: 08/31/16 Requested By: YANICK RIBEIRO,JENNIFER History of Present Illness: 46-year-old gentleman admitted to the hospital with altered mental status found to have a pulmonary embolism on CTA chest. Currently the patient is somnolent from medication. As per the chart, the patient has a history of psychiatric illness as well as alcohol abuse. No mention of significant shortness of breath chest pain or hemoptysis as noted in the chart. There is a questionable history that his twin brother has colon cancer and the patient has not undergone colonoscopy. Allergies/Medications Allergies: Coded Allergies: codeine (Intermediate, HIVES 08/30/16) amoxicillin (UNKNOWN 08/30/16) desipramine (HIVES 08/30/16) haloperidol (LARYNGEAL DYSTONIA 08/30/16) Home Med List: Acamprosate Calcium 333 MG TABLET.DR 2 TAB PO TID ALCOHOL WITHDRAWAL ( Reported) Benztropine Mesylate 2 MG TABLET 1 TAB PO TID ANXIETY (Reported) Gabapentin (Neurontin) 300 MG CAPSULE 1 CAP PO 4 TIMES/DAY NERVES (Reported) Haloperidol 2 MG TABLET 1 TAB PO DAILY MENTAL HEALTH (Reported) [place] Carbonate ([place] Carbonate ER) 300 MG TABLET.ER 1 TAB PO DAILY BIPOLAR (Reported) [place] Carbonate ([place] Carbonate ER) 300 MG TABLET.ER 2 TAB PO QPM BIPOLAR (Reported) Olanzapine (Zyprexa) 7.5 MG TABLET 1 TAB PO BID MENTAL HEALTH (Reported) Olanzapine 15 MG TABLET 1 TAB PO QPM MENTAL HEALTH (Reported) Quetiapine Fumarate 400 MG TABLET 1 TAB PO QPM MENTAL HEALTH (Reported) Quetiapine Fumarate 50 MG TABLET 1 TAB PO QPM MENTAL HEALTH (Reported) Trazodone HCl 100 MG TABLET 2 TAB PO QPM SLEEP (Reported) Current Medications: Current Medications Sig/Sebastian Start time Last Medication Dose Route Stop Time Status Admin Benztropine Mesylate 2 MG TID 08/31 1000 AC PO Cyanocobalamin/ 1 BAG ONCE ONE 08/30 1944 DC 08/30 Thiamine/Pyridoxine IV 08/31 Dextrose/Water 1,000 ML Folic Acid 1 MG DAILY 08/31 1000 AC PO Gabapentin 300 MG 4 TIMES/DAY 08/31 1000 AC PO Haloperidol 2 MG DAILY 08/31 1000 AC PO Heparin Sodium 0 .STK-MED ONE 08/30 1733 DC (Porcine) .ROUTE Heparin Sodium 5,000 UNIT ONCE ONE 08/30 1715 DC 08/30 (Porcine) IV 08/30 1716 1757 Heparin Sodium/ 25,000 UNIT Q24H 08/30 1715 AC 08/30 Dextrose IV 1757 Dextrose/Water 500 ML [place] Carbonate 600 MG QPM 08/31 2200 AC PO [place] Carbonate 300 MG DAILY 08/31 1000 AC PO Lorazepam 2 MG Q6 08/30 2359 AC 08/30 PO 2341 Lorazepam 0 Q1P PRN 08/30 2300 AC IV Multivitamins 1 TAB DAILY 08/31 1000 AC PO Nicotine 14 MG DAILY PRN 08/31 0430 AC TOP Olanzapine 15 MG QPM 08/31 2200 AC PO Olanzapine 7.5 MG BID 08/31 1000 AC PO Quetiapine Fumarate 450 MG QPM 08/31 2200 AC PO Sodium Chloride 1,000 ML BOLUS ONE 08/30 1445 DC 08/30 IV 08/30 1544 1440 Review of Systems Review of Systems: 12 point review of system is unobtainable Past History Travel History Traveled to [place] past 21 day No Medical History Blood Transfusion Hx: No Neurological: NONE EENT: NONE Cardiovascular: NONE Respiratory: asthma Gastrointestinal: NONE Hepatic: NONE Renal: NONE Musculoskeletal: NONE Psychiatric: bipolar disease, schizoprenia depression Endocrine: NONE Blood Disorders: NONE Cancer(s): 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 but seems .5 -1pint vodka/day Illicit Drug Use: marijuana Employment History Employment: Unemployed Exam & Diagnostic Data Vital Signs and I&O Vital Signs Date Time Temp Pulse Resp B/P B/P Pulse O2 O2 Flow FiO2 Mean Ox Delivery Rate 08/31 0600 98.2 83 20 118/84 08/31 0409 98.2 83 20 118/84 97 Room Air 08/31 0400 98.2 83 20 118/84 08/31 0027 98.4 79 20 128/88 97 Room Air 08/31 0000 98.4 79 20 128/88 08/30 2330 97 Room Air 08/307 98.6 75 20 130/92 97 08/301 98.2 83 16 132/74 97 Room Air 08/30 1932 98.0 83 16 131/79 99 Room Air 08/30 1701 96 19 141/91 99 Room Air 08/30 1305 97.1 98 114/70 97 08/30 1120 98.7 100 20 144/88 98 Room Air Intake & Output 08/31 0800 08/31 0000 08/30 1600 Intake Total 1000 1000 Output Total 950 800 Balance 50 -800 1000 Intake, IV 800 1000 Intake, Oral 200 Output, Urine 950 800 Patient 218 lb 220 lb Weight Weight Reported by Patient Estimated Measurement Method Gen.: in NAD, somnolent ENT: Sclera anicteric Chest: Normal respiratory effort, clear breath sounds Cor: RRR, no extra sounds Abdomen: Soft, bowel sounds present, no tenderness, no rebound Extremities: Without clubbing, cyanosis, questionable right lower extremity edema Neurology: Somnolent Skin: No rashes Last 48 Hours of Lab Results: Laboratory Tests 08/31 08/30 0005 1432 Coagulation APTT (25 - 37 SEC) 81 H Toxicology Urine Opiates Screen (>2000 NG/ML) < 100.00 Methadone Screen (>300 NG/ML) 45 Barbiturate Screen (>200 NG/ML) < 60 Ur Phencyclidine Scrn (>25 NG/ML) < 6.00 Amphetamines Screen (>1000 NG/ML) < 100 U Benzodiazepines Scrn (>200 NG/ML) < 85 Urine Cocaine Screen (>300 NG/ML) < 50 Urine Cannabis Screen (>50 NG/ML) < 5.00 Urines Urine Color (YEL,AMB,STR) YEL Urine Clarity (CLEAR) CLEAR Urine pH (5.0 - 8.0) 7.5 Ur Specific [place] (1.001 - 1.035) 1.010 Urine Protein (NEG,<30 MG/DL) NEG Urine Ketones (NEG) NEG Urine Nitrite (NEG) NEG Urine Bilirubin (NEG) NEG Urine Urobilinogen (0.1 - 1.0 EU/dl) 0.2 Ur Leukocyte Esterase (NEG) NEG Ur Microscopic SEDIMENT EXAMINED Urine RBC (0 - 5 /HPF) 1-3 Urine WBC (0 - 2 /HPF) RARE Hyaline Casts (0/LPF) RARE H Urine Mucus (FEW,NONE) RARE Urine Hemoglobin (NEG) TRACE-LYSED H Urine Glucose (N MG/DL) NEG 08/30 1200 Chemistry Sodium (137 - 145 mmol/L) 147 H Potassium (3.5 - 5.1 mmol/L) 4.3 Chloride (98 - 107 mmol/L) 111 H Carbon Dioxide (22 - 30 mmol/L) 19 L Anion Gap (5 - 16) 16 BUN (9 - 20 mg/dL) 9 Creatinine (0.7 - 1.2 mg/dL) 1.2 Estimated GFR (>60 ml/min) > 60 BUN/Creatinine Ratio (7 - 25 %) 7.5 Glucose (65 - 99 mg/dL) 109 H Calcium (8.4 - 10.2 mg/dL) 10.2 Magnesium (1.6 - 2.3 mg/dL) 2.1 Total Bilirubin (0.2 - 1.3 mg/dL) 0.7 AST (17 - 59 U/L) 23 ALT (21 - 72 U/L) 37 Alkaline Phosphatase (< 127 U/L) 79 Troponin I (<0.11 ng/ml) < 0.01 Total Protein (6.3 - 8.2 g/dL) 8.2 Albumin (3.5 - 5.0 g/dL) 5.1 H Globulin (1.9 - 4.2 gm/dL) 3.1 Albumin/Globulin Ratio (1.1 - 2.2 %) 1.6 TSH (0.270 - 4.200 uIU/mL) 1.970 Coagulation PT (9.4 - 12.5 SEC) 13.0 H INR (0.90 - 1.17) 1.24 H APTT (25 - 37 SEC) 29 D-Dimer High Sensitivty (0 - 243 ng/ml) 746 H Hematology CBC w Diff NO MAN DIFF REQ WBC (4.8 - 10.8 /CUMM) 6.8 RBC (4.70 - 6.10 /CUMM) 4.76 Hgb (14.0 - 18.0 G/DL) 13.4 L Hct (42 - 52 %) 41.3 L MCV (80.0 - 94.0 FL) 86.8 MCH (27.0 - 31.0 PG) 28.2 RDW (11.5 - 14.5 %) 16.0 H Plt Count (130 - 400 /CUMM) 281 MPV (7.4 - 10.4 FL) 8.5 Gran % (42.2 - 75.2 %) 52.2 Lymphocytes % (20.5 - 51.1 %) 34.5 Monocytes % (1.7 - 9.3 %) 12.0 H Eosinophils % (0 - 5 %) 1.0 Basophils % (0.0 - 2.0 %) 0.3 Absolute Granulocytes (1.4 - 6.5 /CUMM) 3.6 Absolute Lymphocytes (1.2 - 3.4 /CUMM) 2.4 Absolute Monocytes (0.10 - 0.60 /CUMM) 0.8 H Absolute Eosinophils (0.0 - 0.7 /CUMM) 0.1 Absolute Basophils (0.0 - 0.2 /CUMM) 0 PUBS MCHC (33.0 - 37.0 G/DL) 32.5 L Toxicology Salicylates (0 - 20.0 mg/dL) < 1.0 Acetaminophen (10.0 - 30.0 ug/mL) < 10.0 L Clemmons (0.6 - 1.2 mmol/L) 0.7 Serum Alcohol (<10 MG/DL) 36.0 Imaging/Other Studies: CTA chest-pulmonary emboli Assessment/Plan Assessment: Possible unprovoked pulmonary embolism. Family history is unobtainable for thrombophilia. During the patient is being heparinized with anticipation conversion to an oral anticoagulant. Recommend- Doppler ultrasound of lower extremities Hypercoagulable workup to include Protein C Protein S No need to obtain anti-thrombin 3 given therapeutic effect of heparin Lupus anticoagulant RAMANDEEP Factor V Leiden Prothrombin gene mutation Plasminogen Alpha 2 antiplasmin Anti-cardiolipin antibody serology If Verified family history of colon cancer in Twin brother -screening colonoscopy This data can be obtained as an outpatient 2. Altered mental status- 3. Schizophrenia/bipolar illness 4. Alcohol abuse Please call if any further issues develop during this hospitalization, follow-up my office as an outpatient Recommendations: .. Consult Acknowledgment - Thank you for your consult request.
[2016-08-31 08:42] LABS: ABSOLUTE BASOPHIL COUNT 0.1 /CUMM (0.0-0.2); ABSOLUTE EOSINOPHIL COUNT 0.2 /CUMM (0.0-0.7); RED BLOOD CELL CT 4.27 /CUMM (4.70-6.10)
[2016-08-31 09:36] LABS: ABSOLUTE GRANULOCYTE CT 5.7 /CUMM (1.4-6.5); ABSOLUTE LYMPH COUNT 4.4 /CUMM (1.2-3.4); BASOPHIL % 0.7 % (0.0-2.0); GRANULOCYTE % 49.8 % (42.2-75.2); HEMATOCRIT 37.7 % (42-52); MEAN CORPUSCULAR HGB 28.3 PG (27.0-31.0); MEAN CORPUSCULAR VOLUME 88.3 FL (80.0-94.0); MEAN PLATELET VOLUME 9.2 FL (7.4-10.4); PLATELET COUNT 244 /CUMM (130-400); RBC DISTRIBUTION WIDTH 16.3 % (11.5-14.5)
[2016-08-31 09:42] LABS: WHITE BLOOD CELL COUNT 11.4 /CUMM (4.8-10.8)
--- NOTE | 2016-08-31 10:29 | PN- Housestaff ---
See Addendum Subjective Follow-up For: Alcohol Detox Subjective: Patient was extremely drowsy but arousable when i went to see him this morning.Could not get much information from the patient. According to the nurse ativan makes him extremly drowsy. Review of Systems Constitutional: Denies: no symptoms. EENTM: Denies: no symptoms. Cardiovascular: Denies: no symptoms. Respiratory: Denies: no symptoms. Gastrointestinal: Denies: no symptoms. Genitourinary: Denies: no symptoms. Objective Last 24 Hrs of Vital Signs/I&O Vital Signs Date Time Temp Pulse Resp B/P B/P Pulse O2 O2 Flow FiO2 Mean Ox Delivery Rate 08/31 1202 98.6 90 20 122/80 97 Room Air 08/31 0803 97.9 77 20 106/78 96 Room Air 08/31 0800 Nasal Cannula 08/31 0600 98.2 83 20 118/84 08/31 0409 98.2 83 20 118/84 97 Room Air 08/31 0400 98.2 83 20 118/84 08/31 0027 98.4 79 20 128/88 97 Room Air 08/31 0000 98.4 79 20 128/88 08/30 2330 97 Room Air 08/30 2237 98.6 75 20 130/92 97 08/30 2121 98.2 83 16 132/74 97 Room Air 08/30 1932 98.0 83 16 131/79 99 Room Air 08/30 1701 96 19 141/91 99 Room Air Intake & Output 08/31 1600 08/31 0800 08/31 0000 Intake Total 480 1000 Output Total 950 800 Balance 480 50 -800 Intake, IV 800 Intake, Oral 480 200 Output, Urine 950 800 Patient 218 lb Weight Weight Reported by Patient Measurement Method Physical Exam General Appearance: Patient was very drowsy after taking ativan for alcohol withdrawl. Skin: No Rashes, No Breakdown HEENT: Atraumatic, PERRLA, EOMI Neck: Supple, No JVD Cardiovascular: Regular Rate, Normal S1, Normal S2, No Murmurs Lungs: Clear to Auscultation, Normal Air Movement Abdomen: Normal Bowel Sounds, Soft, No Tenderness Extremities: No Clubbing, No Cyanosis, No Edema, Normal Pulses Current Medications: Current Medications Sig/Sebastian Start time Last Medication Dose Route Stop Time Status Admin Benztropine Mesylate 2 MG TID 08/31 1000 AC 08/31 PO 1040 Cyanocobalamin/ 1 BAG ONCE ONE 08/30 1945 DC 08/30 Thiamine/Pyridoxine IV 08/31 0344 2111 Dextrose/Water 1,000 ML Folic Acid 1 MG DAILY 08/31 1000 AC 08/31 PO 1039 Gabapentin 300 MG 4 TIMES/DAY 08/31 1000 AC 08/31 PO 1431 Haloperidol 2 MG DAILY 09/01 1000 AC PO Haloperidol 2 MG DAILY 08/31 1000 DC PO Heparin Sodium 0 .STK-MED ONE 08/30 1733 DC (Porcine) .ROUTE Heparin Sodium 5,000 UNIT ONCE ONE 08/30 1715 DC 08/30 (Porcine) IV 08/30 1716 1757 Heparin Sodium/ 25,000 UNIT Q24H 08/30 1715 AC 08/31 Dextrose IV 1225 Dextrose/Water 500 ML [place] Carbonate 600 MG QPM 08/31 2200 AC PO [place] Carbonate 300 MG DAILY 08/31 1000 AC 08/31 PO 1041 Lorazepam 1 MG Q6 08/31 1200 CAN PO Lorazepam 1 MG Q6 08/31 1200 CAN PO Lorazepam 0 Q1P PRN 08/31 0945 AC IV Lorazepam 2 MG Q6 08/30 2359 DC 08/30 PO 2341 Lorazepam 0 Q1P PRN 08/30 2300 DC IV Multivitamins 1 TAB DAILY 08/31 1000 AC 08/31 PO 1039 Nicotine 14 MG DAILY PRN 08/31 0430 AC TOP Olanzapine 15 MG QPM 08/31 2200 AC PO Olanzapine 7.5 MG BID 08/31 1000 AC 08/31 PO 1039 Patient Medication 1 ED .STK-MED ONE 08/31 1425 DC Teaching ED 08/31 1426 Potassium Chloride 40 MEQ ONCE ONE 08/31 1100 DC 08/31 PO 08/31 1101 1226 Quetiapine Fumarate 450 MG QPM 08/31 2200 AC PO Sodium Chloride 1,000 ML BOLUS ONE 08/30 1445 DC 08/30 IV 08/30 1544 1440 Last 24 Hrs of Lab/[place] Results Last 24 Hrs of Labs/Mics: Laboratory Tests 08/31/16 1237: APTT 50 H 08/31/16 0635: Anion Gap 13, Estimated GFR > 60, BUN/Creatinine Ratio 7.5, Troponin I < 0.01, CBC w Diff NO MAN DIFF REQ, RBC 4.27 L, MCV 88.3, MCH 28.3, RDW 16.3 H, MPV 9.2, Gran % 49.8, Lymphocytes % 38.8, Monocytes % 8.7, Eosinophils % 2.0, Basophils % 0.7, Absolute Granulocytes 5.7, Absolute Lymphocytes 4.4 H, Absolute Monocytes 1.0 H, Absolute Eosinophils 0.2, Absolute Basophils 0.1, PUBS MCHC 32.0 L 08/31/16 0005: APTT 81 H Assessment/Plan Assessment: Patient is a 46 yo M with pmhx of bipolar, schizophrenia, depression, last admitted 05/04/14 for etoh withdrawal presenting for lethragy due to simultaneous drinking pint of vodka, smoking cigarettes/weed, and taking his medications and also found to have a PE of his right lower lobe pulmonary artery. 1. Pulmonary embolism Patient was found to have a PE of his right lower lobe pulmonary artery. His d- dimer was 746,PT 13, INR 1.24. At this time the cause of his PE is unknown. He did state to our attending that he has a twin brother with colon cancer.The patient states that he has never had a colonoscopy. The patient denies any trauma, immobility/recent travel, any history of previous DVTs/PE/coagulopathies , any family history of clots,or any hormone use. -f/u cbc,bmp -guaiac all stools, monitor H/H and plt count while on heparin -Confirm family history of colon cancer?, outpt colonoscopy needed if positive FH -Follow-up repeat EKG, troponins -place echocardiogram -Continue heparin and transition to apixaban tomorrow -f/u heme onc consult 2. Alcohol abuse The patient was last admitted to [facility] on 05/04/2014 for alcohol detoxification. -Continue banana bag, replete lytes as needed -Continue CIWA protocol, neurochecks -Ativan 2 mg every 6 hours by mouth -f/u social work consult 3. Bipolar disorder The patient has a history of bipolar disorder maintained on lithium. -Follow-up lithium levels -f/u psych consult : Continue lithium 600 mg by mouth at nighttime 4. Schizophrenia The patient has a history of schizophrenia. -f/u psych consult: continue him on his home medications 5. Nicotine dependence Assessment/Plan The patient is a current smoker. He was unclear about how many cigarettes he smokes. -continue nicotine patch 14mg daily 6. Neuropathic pain Assessment/Plan The patient has a history of neuropathic pain. -continue gabapentin 300mg 4 times per day 7. DVT prophylaxis Assessment/Plan Continue heparin for PE 8. Full code status Problem List: 1. Alcohol dependence 2. Bipolar disorder 3. Schizophrenia 4. Nicotine dependence 5. Neuropathic pain 6. Pulmonary embolism Pain Ratin Pain Location: None Pain Goal: Remain pain free Pain Plan: None Tomorrow's Labs & Rationales: CBC(on heparin), BEP (Hypok)
--- NOTE | 2016-08-31 10:59 | Cons- Psychiatry ---
Psychiatric Consult Date of Consult: 08/31/16 Reason for Consult: "Alcohol abuse" Patient has a history of schizoaffective disorder with complicated psychotropic regimen. Dr. Montez attending. History of Present Illness: Identifying Info: 46-year-old -[place] male presents to [facility] emergency department on 08/30/2016 status post being found altered by visiting nurse. He was subsequently found to have a pulmonary embolism and admitted to medicine. CC: "I messed up... I was left to my own devices." HPI: Patient was found to be lethargic next an empty bottle of vodka by his visiting nurse [facility]. At that time the patient endorses drinking a half pint of vodka. The patient reports a strong relationship with his girlfriend who is currently in [place]. This led to him consuming alcohol due to being alone. The patient has presented multiple different reports for the amount he has been drinking in the days he spends drinking per week to different staff. Highest endorsed consumption drinking for 6 days then being sober 2 nights prior to admission, 1-1.5 pts of vodka daily. He denies any history of complicated withdrawl. The patient has a long history of mental illness Schizoaffective disorder with multiple inpatient hospitalizations due to intermittent medication noncompliance. He has however not been hospitalized since 2014. He has been relatively well-maintained on current medication regimen with visiting nurse services. With patient permission discussed case with outpatient psychiatric clinic [facility]. Spoke to the hospital liaison Olena confirmed patient's diagnoses and medications as below. She reports patient has missed some groups lately. At present he is scheduled for group on Tuesday the which will be rescheduled. He has a meeting with his clinician on 09/08 at 1 PM which will plan to attend pending medical clearance. House staff discussed case with patient's outpatient prescriber Laila Wolfe APRN. She report that patient's utox has been negative lately. Confirmed that this patient is not allergic to haldol. Per house staff report patient seemed to scores have been 0 and the patient has not displayed any signs or symptoms of alcohol withdrawal. Attending reports that the patient could potentially be discharged on oral anticoagulants as early as tomorrow barring any complications. PMH: Please see the H&P for a complete listing Asthma Past Psych History: Schizoaffective disorder, depressed type Posttraumatic stress disorder -Outpatient Currently Care, Laila Wolfe APRN prescriber, Stephanie Ramos therapist Visiting psych nurse [facility] -Inpatient [facility]-2010, 2011, 2012, ?2014 Family Psych History: Not obtained Substance History Alcohol use disorder Cannabis use disorder 0.5PPD smoker -Treatment Inpatient rehabilitation stay in 2012 Family Substance History: Not obtained Social: Single. Unemployed, currently receives Social Security. Abuse/Trauma: Per hx yes. Current Home Psychotropic Medications: Quetiapine 450 mg daily at bedtime Haloperidol 2 mg every morning Olanzapine 7.5 mg twice a day Olanzapine 15 mg daily at bedtime [place] ER 300 mg every morning [place] ER 600 mg daily at bedtime Cogentin 2 mg 3 times a day Campral 333 mg 3 times a day Current Hospital Psychotropic Medications: Med Benztropine Mesylate 2 MG PO TID 08/31/16 1000 Gabapentin 300 MG PO 4 TIMES/DAY 08/31/16 1000 Haloperidol 2 MG PO DAILY 09/01/16 1000 [place] Carbonate 600 MG PO QPM 08/31/16 2200 [place] Carbonate 300 MG PO DAILY 08/31/16 1000 Lorazepam IV Q1P PRN 08/31/16 0945 Olanzapine 15 MG PO QPM 08/31/16 2200 Olanzapine 7.5 MG PO BID 08/31/16 1000 Quetiapine Fumarate 450 MG PO QPM 08/31/16 2200 Allergies: Coded Allergies: codeine (Intermediate, HIVES 08/30/16) amoxicillin (UNKNOWN 08/30/16) desipramine (HIVES 08/30/16) Current Medications: Current Medications Sig/Sebastian Start time Last Medication Dose Route Stop Time Status Admin Benztropine Mesylate 2 MG TID 08/31 1000 AC 08/31 PO 1040 Cyanocobalamin/ 1 BAG ONCE ONE 08/30 1945 DC 08/30 Thiamine/Pyridoxine IV 08/31 0344 2111 Dextrose/Water 1,000 ML Folic Acid 1 MG DAILY 08/31 1000 AC 08/31 PO 1039 Gabapentin 300 MG 4 TIMES/DAY 08/31 1000 AC 08/31 PO 1040 Haloperidol 2 MG DAILY 09/01 1000 UNVr PO Haloperidol 2 MG DAILY 08/31 1000 DC PO Heparin Sodium 0 .STK-MED ONE 08/30 1733 DC (Porcine) .ROUTE Heparin Sodium 5,000 UNIT ONCE ONE 07/17 1715 DC 08/30 (Porcine) IV 08/30 1716 1757 Heparin Sodium/ 25,000 UNIT Q24H 08/30 1715 AC 08/30 Dextrose IV 1757 Dextrose/Water 500 ML [place] Carbonate 600 MG QPM 08/31 2200 AC PO [place] Carbonate 300 MG DAILY 08/31 1000 AC 08/31 PO 1041 Lorazepam 1 MG Q6 08/31 1200 CAN PO Lorazepam 1 MG Q6 08/31 1200 CAN PO Lorazepam 0 Q1P PRN 08/31 0945 AC IV Lorazepam 2 MG Q6 08/30 2359 DC 08/30 PO 2341 Lorazepam 0 Q1P PRN 08/30 2300 DC IV Multivitamins 1 TAB DAILY 08/31 1000 AC 08/31 PO 1039 Nicotine 14 MG DAILY PRN 08/31 0430 AC TOP Olanzapine 15 MG QPM 08/31 2200 AC PO Olanzapine 7.5 MG BID 08/31 1000 AC 08/31 PO 1039 Potassium Chloride 40 MEQ ONCE ONE 08/31 1100 UNVr PO 08/31 1101 Quetiapine Fumarate 450 MG QPM 08/31 2200 AC PO Sodium Chloride 1,000 ML BOLUS ONE 08/30 1445 DC 08/30 IV 08/30 1544 1440 Past History Past Medical History Neurological: NONE EENT: NONE Cardiovascular: NONE Respiratory: asthma Gastrointestinal: NONE Hepatic: NONE Renal: NONE Musculoskeletal: NONE Psychiatric: bipolar disease, schizoprenia depression Endocrine: NONE Blood Disorders: NONE Cancer(s): NONE 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 Past Surgical History Surgical History: 1 Psychosocial History Strengths/Capabilities: Reported compliance with outpatient treatment and medications, as administered by visiting nurse Physical Limitations (Interventions): PE Psychiatric Treatment History Psych Treatment Psychiatric Treatment Yes (As above) Diagnosis: Schizoaffective disorder, depressed type Posttraumatic stress disorder Cannabis use disorder, mild Alcohol use disorder, moderate Risk Factors: history of Violence, history of suicide atmpts, SA/MH hospitalized , substance abuse, poor impulse control, male Substance Use/Abuse History Drug Use/Abuse Substances Used/Abused Yes (as above) Substance Abuse Treatment Substance Abuse Treatment Past Substance Abuse [place] Yes (as above) Assessment/Plan Mental Status Mental Status Exam: Presentation/Appearance: Calm, Cooperative with evaluation. Hospital garb. Mild lip smacking and tongue protrusion noted. Orientation: Grossly oriented Sensorium: Awake and alert Eye contact: Appropriate Affect: Blunted Mood: "Anxious... I want to get home to take care of my animals." Depression: Denies Anxiety: Endorses Thought Content: - Denies SI/HI, AH/VH, PI. States and also believes they will not kill themselves. - Denies Hopeless/Helpless Thoughts Thought Process: Linear Associations: Appropriate Speech: Normal tone and rate Judgment: Fair Insight: Fair Cognition: Memory: Grossly intact Attention/Concentration: Grossly intact Fund of Knowledge: Did not assess Abstractions: Did not assess MMSE: Did not assess Brief ROS Gait: Steady Sleep: Adequate Appetite: Adequate Energy: Low IADLs/ADLs: Independent Mild +cogwheel Lab Results: Laboratory Tests 08/31/16 0635: Anion Gap 13, Estimated GFR > 60, BUN/Creatinine Ratio 7.5, Troponin I < 0.01, CBC w Diff NO MAN DIFF REQ, RBC 4.27 L, MCV 88.3, MCH 28.3, RDW 16.3 H, MPV 9.2, Gran % 49.8, Lymphocytes % 38.8, Monocytes % 8.7, Eosinophils % 2.0, Basophils % 0.7, Absolute Granulocytes 5.7, Absolute Lymphocytes 4.4 H, Absolute Monocytes 1.0 H, Absolute Eosinophils 0.2, Absolute Basophils 0.1, PUBS MCHC 32.0 L 08/31/16 0005: APTT 81 H 08/30/16 1432: Urine Opiates Screen < 100.00, Methadone Screen 45, Barbiturate Screen < 60, Ur Phencyclidine Scrn < 6.00, Amphetamines Screen < 100, U Benzodiazepines Scrn < 85, Urine Cocaine Screen < 50, Urine Cannabis Screen < 5.00, Urine Color YEL, Urine Clarity CLEAR, Urine pH 7.5, Ur Specific [place] 1.010, Urine Protein NEG, Urine Ketones NEG, Urine Nitrite NEG, Urine Bilirubin NEG, Urine Urobilinogen 0.2, Ur Leukocyte Esterase NEG, Ur Microscopic SEDIMENT EXAMINED, Urine RBC 1-3, Urine WBC RARE, Hyaline Casts RARE H, Urine Mucus RARE, Urine Hemoglobin TRACE- LYSED H, Urine Glucose NEG 08/30/16 1200: Anion Gap 16, Estimated GFR > 60, BUN/Creatinine Ratio 7.5, Glucose 109 H, Calcium 10.2, Magnesium 2.1, Total Bilirubin 0.7, AST 23, ALT 37, Alkaline Phosphatase 79, Troponin I < 0.01, Total Protein 8.2, Albumin 5.1 H, Globulin 3.1, Albumin/Globulin Ratio 1.6, TSH 1.970, PT 13.0 H, INR 1.24 H, APTT 29, D- Dimer High Sensitivty 746 H, CBC w Diff NO MAN DIFF REQ, RBC 4.76, MCV 86.8, MCH 28.2, RDW 16.0 H, MPV 8.5, Gran % 52.2, Lymphocytes % 34.5, Monocytes % 12.0 H, Eosinophils % 1.0, Basophils % 0.3, Absolute Granulocytes 3.6, Absolute Lymphocytes 2.4, Absolute Monocytes 0.8 H, Absolute Eosinophils 0.1, Absolute Basophils 0, PUBS MCHC 32.5 L, Salicylates < 1.0, Acetaminophen < 10.0 L, [place] 0.7, Serum Alcohol 36.0 Diffential Diagnosis: Schizoaffective disorder, depressed type Posttraumatic stress disorder Cannabis use disorder, mild Alcohol use disorder, moderate Impression: 46-year-old single -[place] male presents with lethargy in the context of alcohol consumption and pulmonary embolism. He has a long history of mental illness with intermittent hospitalization due to medication noncompliance. At present he endorses compliance with medications and denies any psychiatric symptoms beyond anxiety r/t to getting home to take care of his pets. He has shown minimal signs of ETOH withdrawl and denies any history complicated withdrawl. It would be prudent to continue to monitor for s/s of withdrawl due to it being unclear how much the patient is consuming at present. Provisional Treatment Plan: 1. Please discontinue one-to-one sitter, this patient denies suicidality and there is no indication of suicidal behavior. 2. Please restart home med Campral 333mg TID. 3. Please start 14mg nicotine patch. 4. Please continue psychotropics as currently ordered. 5. Plan for patient to f/u with current mental health provider [facility]. Thank you for including psychiatry in this case, we will continue to follow.
--- NOTE | 2016-08-31 12:03 | ULTRASOUND REPORT ---
EXAMINATION: US TRIPLEX OF LOWER EXTREMITIES, BILATERAL CLINICAL INFORMATION: Pulmonary embolism. COMPARISON: None TECHNIQUE: Color-flow triplex imaging with spectral analysis and compression Doppler were performed on the lower extremities. FINDINGS: Respiratory variation, normal compression and augmented flow are noted throughout the lower extremities. The visualized common femoral vein, superficial femoral vein, profunda femoral vein, popliteal vein and midcalf peroneal and posterior tibial venous segments show no evidence of deep venous thrombosis. There is no Granda's cyst. IMPRESSION: Normal triplex scan without evidence of deep venous thrombosis involving the lower extremities.
[2016-08-31 14:16] LABS: PTT 50 SEC (25-37)
--- NOTE | 2016-09-01 06:40 | Event Note ---
Event Note Event Note: Situation: * Patient decided to leave AMA Brief: * Patient requested to leave AMA stating that "he has animals to get home to to take care of" * Patient stated that his girlfriend would be back in town and able to help him out * Had a chance to speak with him to ensure complete understanding of his diagnosis and risks associated with leaving AGAINST MEDICAL ADVICE. Patient expressed understanding of the risks of bleeding that can happen spontaneously or with minor trauma * Patient again reiterated and demonstrated complete understanding and accepted all risks associated with his decision Assessment/recommendations: * I provided him with a prescription for Eliquis with instructions to take 10 mg PO BID for the first 7 days and subsequently 5mg BID. I strongly advised the patient to contact his PCP immediately to ensure close follow-up while on NOAC
--- NOTE | 2016-09-01 15:38 | Discharge Summary ---
Visit Information Visit Dates Admission Date: 08/30/16 Discharge Date: 08/31/16 Hospital Course Course Attending Physician: RAND ALCAZAR MD Primary Care Physician: COLETTE RIBEIRO,[facility] Course: Mr Martin is a 46-year-old male with a past medical history of alcohol abuse, bipolar, schizophrenia, depression who was brought into the emergency department after being found very lethargic by visiting nurse. Patient states that he normally has a history of consuming alcohol on a daily basis (drinks between 1/2 - 1 pint of vodka per day), however 12 hours prior to admission he consumed an excessive amount of alcohol stating that "he felt like it". Patient also reports that his girlfriend and her son has travelled out of town. Briefly spoke with the patient's girlfriend on the telephone who was travelling in [place] who stated that this patient is a history of consuming excessive alcohol when she leaves town. She stated that the patient may have been admitted to [facility] over the last few months for alcohol withdrawal. Patient does have a history of alcohol abuse. He was last admitted to [facility] where he underwent alcohol detoxification on 05/04/2016. At the time of clinical interaction, he denied any suicidal or homicidal ideation.He Is a current every day smoker. He denies any recreational drug use..Denies any family history of any acute illnesses although did mention to the attending physician that he has a twin brother who has colon cancer. ROS: Patient denied any chest pain, fever, chills, nausea, vomiting. He denied any shortness of breath, and dyspnea on exertion. Vital at the time of admission: Temperature 98.7, RR 20, BP 144/88, heart rate 100 saturating 98% room air. Labs The time of admission WBC 6.8. H&H 13.4/41.3. Platelets 281. PT 13.0, INR 1.24, d-dimer was done owing to tachycardia which is 746. Sodium 147. Chloride 111. Carbon dioxide 19. Anion gap 16. Cr 1.2. Chest CTA: Pulmonary embolism within the branches of the right lower lobe pulmonary artery. Head CT: IMPRESSION: No evidence for acute intracranial injury. Doppler Ultrasound: IMPRESSION: Normal triplex scan without evidence of deep venous thrombosis involving the lower extremities. Patient was admitted to General Medicine floor and was treated for the following problems 1. Acute unprovoked PE 2. Alcohol Detox 3. Depression, bipolar disorder, Schizophrenia 4. History of Pain. 1. Pulmonary embolism Patient was found to a have a PE on CT Chest. Patient was started on heparin( plan to transition to eliquis next day)and his H&H and platelet counts were monitored while he was on heparin. Serial Troponins were negative and repeat EKG was normal. Echo was ordered to look for any evidence of right-sided heart strain and work up for hypercoagulable state was pending as per Heme/Onc recommendations. Doppler ultrasound was done to rule out DVT. Patient requested to leave AMA. Patient expressed understanding of the risks of bleeding that can happen spontaneously or with minor trauma.He was provided with a prescription for Eliquis with instructions to take 10 mg PO BID for the first 7 days and subsequently 5mg BID. Patient was strongly advised to contact his PCP immediately to ensure close follow-up while on NOAC and to schedule an outpatient colonoscopy because of positive family history of colon cancer. 2. Alcohol abuse The patient was last admitted to [facility] on 05/04/2014 for alcohol detoxification. Patient was started on Ativan per [facility] protocol. Social work was consulted. 3.History of depression, bipolar, mood disorder. Psych was consulted and they recommended to continue his home medicines. 4.History of Pain Gabapentin continued. 5.History smoking. Nicotine patch when necessary. Patient was on heparin drip for DVT Prophylaxis. Allergies: Coded Allergies: codeine (Intermediate, HIVES 08/30/16) amoxicillin (UNKNOWN 08/30/16) desipramine (HIVES 08/30/16) Disposition Summary Disposition Principal Diagnosis: Pulmonary embolism ALcohol detox Additional Diagnosis: Bipolar disorder Schizophrenia Discharge Disposition: left against medical adv Discharge Instructions General Discharge Information Code Status: Full Code Patient's Diet: Regular(Avoid Alcohol) Patient's Activity: As Tolerated. Follow-Up Instructions/Appts: Please follow up with your PCP within 1 week. [place] to ED in case of any chest pain, SOB or increased heart rate/palpitation. Copies To: KERA ALVARENGA MD, MD Review Statement Documenting Attending: RAND ALCAZAR MD [place] to ED in case of any chest pain, SOB or increased heart rate/palpitation. Copies To: KERA ALVARENGA MD, MD Review Statement Documenting Attending: RAND ALCAZAR MD Allergies: Coded Allergies: codeine (Intermediate, HIVES 08/30/16) amoxicillin (UNKNOWN 08/30/16) desipramine (HIVES 08/30/16) Disposition Summary Disposition Principal Diagnosis: Pulmonary embolism ALcohol detox Additional Diagnosis: Bipolar disorder Schizophrenia Discharge Disposition: home or self care Discharge Instructions General Discharge Information Code Status: Full Code Patient's Diet: Regular(Avoid Alcohol) Patient's Activity: As Tolerated. Follow-Up Instructions/Appts: Please follow up with your PCP within 1 week. [place] to ED in case of any chest pain, SOB or increased heart rate/palpitation. Copies To: COLETTE RIBEIRO,KERA Attending MD Review Statement Documenting Attending: RAND ALCAZAR MD
== END 2016-08-31 17:43 | disposition left against medical advice (07) | DRG 894 ==
LOC: ERH 11:08 → ERHI 18:26 → 2NB 18:26 → ENRESERV 21:14 → ENTRNSPT 21:56 → EDTRNSPTSTS 21:58 → 2NB 22:10 → CMPTRNSPT 22:17 → 2NB 08-31 07:02
PROVIDERS: Emergency Medicine; Internal Medicine; Student in an Organized Health Care Education/Training Program; ADMIT Student in an Organized Health Care Education/Training Program
DX: F10.129 Alcohol abuse with intoxication, unspecified (principal); I26.99 Other pulmonary embolism without acute cor pulmonale; Y90.1 Blood alcohol level of 20-39 mg/100 ml; F20.9 Schizophrenia, unspecified; F31.9 Bipolar disorder, unspecified; F17.210 Nicotine dependence, cigarettes, uncomplicated
CPT/HCPCS: 2NBSP; 36415; 80307; 81001; 82436; 93005; 93010; 93970; G0480; J1644; J3490; J7060

== ENCOUNTER 2017-03-08 01:03 | Inpatient (IN) | payer OTHER, MEDICARE ==
[~2017-03-08] VITALS: Ht 190.5 cm; Wt 103.9 kg
[~2017-03-08 01:03] MED LIST changes: +HALOPERIDOL2 M1 PO; +QUETIAPINE FUM400 M1 PO; +QUETIAPINE FUMA50 M1 PO
--- NOTE | 2017-03-08 01:14 | ED NEURO DEFICIT/STROKE ---
History of Present Illness General Chief Complaint: General Adult Stated Complaint: RT SIDED DEFICIT Source: patient, old records, EMS Exam Limitations: no limitations Vital Signs & Intake/Output Vital Signs & Intake/Output Vital Signs Date Time Temp Pulse Resp B/P B/P Pulse O2 O2 Flow FiO2 Mean Ox Delivery Rate 03/08 0106 97.9 84 18 125/89 98 Room Air Allergies Coded Allergies: codeine (Intermediate, HIVES 08/30/16) amoxicillin (UNKNOWN 08/30/16) desipramine (HIVES 08/30/16) Reconcile Medications Acamprosate Calcium 333 MG TABLET.DR 2 TAB PO TID ALCOHOL WITHDRAWAL ( Reported) Benztropine Mesylate 2 MG TABLET 1 TAB PO TID ANXIETY (Reported) Gabapentin (Neurontin) 300 MG CAPSULE 1 CAP PO 4 TIMES/DAY NERVES (Reported) Haloperidol 2 MG TABLET 1 TAB PO DAILY MENTAL HEALTH (Reported) [place] Carbonate (Austell Carbonate ER) 300 MG TABLET.ER 1 TAB PO DAILY BIPOLAR (Reported) [place] Carbonate (Austell Carbonate ER) 300 MG TABLET.ER 2 TAB PO QPM BIPOLAR (Reported) Olanzapine (Zyprexa) 7.5 MG TABLET 1 TAB PO BID MENTAL HEALTH (Reported) Olanzapine 15 MG TABLET 1 TAB PO QPM MENTAL HEALTH (Reported) Quetiapine Fumarate 400 MG TABLET 1 TAB PO QPM MENTAL HEALTH (Reported) Quetiapine Fumarate 50 MG TABLET 1 TAB PO QPM MENTAL HEALTH (Reported) Trazodone HCl 100 MG TABLET 2 TAB PO QPM SLEEP (Reported) Triage Nurses Notes Reviewed? yes HPI: Patient noticed on at approximately 8:30 in the evening that he has having difficulty moving the right side of his body. Patient kept hoping that the symptoms resolved so he stated home. His girlfriend came to check on him tonight and find him with right-sided deficits and called EMS. Patient has been having ataxic gait secondary to right leg weakness. Patient states that he has a very difficult time controlling his right arm as well. Patient denies any headache. There is no chest pain or palpitations. There's no shortness of breath. Past History Travel History Traveled to [place] past 21 day No Medical History Any Pertinent Medical History? see below for history Neurological: NONE EENT: NONE Cardiovascular: NONE Respiratory: asthma Gastrointestinal: NONE Hepatic: NONE Renal: NONE Musculoskeletal: NONE Psychiatric: bipolar disease, schizoprenia depression Endocrine: NONE Blood Disorders: NONE Cancer(s): NONE TOPSTITCHER LOCKSTITCH/Reproductive: NONE History of MRSA: No History of VRE: No History of CDIFF: No Pneumonia Vaccine: 02/15/12 Influenza Vaccine: 02/15/12 Surgical History Surgical History: none Psychosocial History Who do you live with Significant Other Services at Home Home Health Aide What is your primary language Thai Tobacco Use: Quit >30 days ago ETOH Use: heavy use Illicit Drug Use: denies illicit drug use Family History Hx Contributory? No Review of Systems Review of Systems Constitutional: Reports: no symptoms. EENTM: Reports: no symptoms. Respiratory: Reports: no symptoms. Cardiovascular: Reports: no symptoms. GI: Reports: no symptoms. Genitourinary: Reports: no symptoms. Musculoskeletal: Reports: no symptoms. Skin: Reports: no symptoms. Neurological/Psychological: Reports: see HPI. Hematologic/Endocrine: Reports: no symptoms. Immunologic/Allergic: Reports: no symptoms. All Other Systems: Reviewed and Negative Physical Exam Physical Exam General Appearance: well developed/nourished, alert, awake, anxious, moderate distress Head: atraumatic, normal appearance Eyes: Bilateral: PERRL, EOMI. Ears, Nose, Throat: moist mucous membrane, hearing grossly normal Neck: normal inspection, supple, full range of motion Respiratory: normal breath sounds, chest non-tender, no respiratory distress, lungs clear Cardiovascular: regular rate/rhythm, normal peripheral pulses Gastrointestinal: normal bowel sounds, soft, non-tender, no organomegaly Back: normal inspection, normal range of motion Extremities: normal range of motion Psychiatric: awake, alert, oriented x 3 Cranial Nerves: normal hearing, PERRL, facial asymmetry Coordination/Gait: ABN nose to finger (R) Motor/Sensory: motor deficit Core Measures CVA/TIA Diagnosis: Yes NIH Stroke Scale NIH Stroke Scale Response Value Level of Consciousness alert 0 LOC Questions answers both correctly 0 LOC Commands obeys both correctly 0 Best Gaze normal 0 Visual Perez no visual loss 0 Facial Paresis minor 1 Motor Arm - Left no drift 0 Motor Arm - Right can't resist gravity 2 Motor Leg - Left no drift 0 Motor Leg - Right drift 1 Limb Ataxia present in two limbs 2 Sensory partial loss 1 Best Language no aphasia 0 Dysarthria mild/mod slurring words 1 Extinction and Inattention no neglect 0 Total 8 Date Last Known Well: 03/03/17 Time Last Known Well: 2030 Symptom Start Date: 03/03/17 Symptom Start Time: 2029 Reason tPA not ordered Medical Contraindication Swallow Evaluation Pass Swallow eval date 03/08/17 Swallow eval time 110 Sepsis Present: No Sepsis Focused Exam Completed? No Progress Differential Diagnosis: intracranial Hem., intracranial mass/tumor, stroke Plan of Care: Orders Procedure Date/time Status Heart Healthy Diet 03/08 B Active ED Holding Orders 03/08 324 Active Admit to inpatient 03/08 324 Active Vital Signs 03/08 324 Active Code Status 03/08 324 Active Telemetry/Molding And Trim Installer 03/08 108 Active URINE DRUGS OF ABUSE 03/08 108 Active URINALYSIS 03/08 108 Active TROPONIN LEVEL 03/08 108 Complete PARTIAL THROMBOPLASTIN TIME 03/08 108 Complete PROTHROMBIN TIME 03/08 108 Complete ETHANOL 03/08 108 Complete COMPREHENSIVE METABOLIC PANEL 03/08 108 Complete CBC WITHOUT DIFFERENTIAL 03/08 108 Complete EKG 03/08 108 Active Laboratory Tests 03/08/17 0310: Methadone Screen Pending, Barbiturate Screen Pending, Ur Phencyclidine Scrn Pending, Amphetamines Screen Pending, U Benzodiazepines Scrn Pending, Urine Cocaine Screen Pending, Urine Cannabis Screen Pending, Urine Color Pending, Urine Clarity Pending, Urine pH Pending, Ur Specific Datil Pending, Urine Protein Pending, Urine Ketones Pending, Urine Nitrite Pending, Urine Bilirubin Pending, Urine Urobilinogen Pending, Ur Leukocyte Esterase Pending, Ur Microscopic Pending, Urine Hemoglobin Pending, Urine Glucose Pending 03/08/17 0127: Anion Gap 18 H, Estimated GFR > 60, BUN/Creatinine Ratio 6.4 L, Glucose 113 H , Calcium 9.8, Total Bilirubin 0.6, AST 29, ALT 27, Alkaline Phosphatase 66, Troponin I < 0.01, Total Protein 8.2, Albumin 4.9, Globulin 3.3, Albumin/ Globulin Ratio 1.5, PT 11.4, INR 1.09, APTT 42 H, CBC w Diff NO MAN DIFF REQ, RBC 4.73, MCV 85.7, MCH 27.9, RDW 15.7 H, MPV 9.6, Gran % 51.0, Lymphocytes % 38.0, Monocytes % 7.3, Eosinophils % 2.6, Basophils % 1.1, Absolute Granulocytes 4.5, Absolute Lymphocytes 3.4, Absolute Monocytes 0.6, Absolute Eosinophils 0.2, Absolute Basophils 0.1, PUBS MCHC 32.6 L, Serum Alcohol 61.0 Diagnostic Imaging: Viewed by Me: Radiology Read, CT Scan. Discussed w/RAD: Radiology Read, CT Scan. Radiology Impression: PATIENT: MAURA DALEY PRESENT AGE: 46 PATIENT ACCOUNT NO: [id number] : 70 LOCATION: ER ORDERING PHYSICIAN: Rashi Rosa MD SERVICE DATE: 03/08/17 EXAM TYPE: CAT - CT HEAD WO IV CONTRAST EXAMINATION: CT HEAD WITHOUT CONTRAST CLINICAL INFORMATION: Right-sided deficits for several days COMPARISON: 08/30/2016 TECHNIQUE: Contiguous axial imaging was performed from the skull base to vertex without intravenous administration of contrast. DLP: 629.32 mGy-cm FINDINGS: There is no evidence of acute intracranial hemorrhage or territorial infarction. No abnormal mass effect or midline shift is seen. Michele to white matter differentiation is well preserved. No extra-axial fluid collections are identified. The ventricles are normal in size. There is no abnormal attenuation within the brain parenchyma. The osseous structures and soft tissues are normal. There is partial opacification of the bilateral mastoid air cells. The visualized portions of the paranasal sinus are well-aerated. IMPRESSION: No acute intracranial pathology. DICTATED BY: Gregor Caban MD DATE/TIME DICTATED :03/08/17211 BONE CHAR KILN OPERATOR:NAOMIE DATE/TIME TRANSCRIBED:03/08/17211 CONFIDENTIAL, DO NOT COPY WITHOUT APPROPRIATE AUTHORIZATION. < Electronically signed in Other Vendor System> SIGNED BY: Gregor Caban MD 03/08/17216 CXR Impression: PATIENT: MAURA DALEY PRESENT AGE: 46 PATIENT ACCOUNT NO: [id number] : 70 LOCATION: [facility] ORDERING PHYSICIAN: Rashi Rosa MD SERVICE DATE: 03/08/17 EXAM TYPE: RAD - XRY- PORTABLE CHEST XRAY EXAMINATION: XR PORTABLE CHEST CLINICAL INFORMATION: Weakness COMPARISON: 08/30/2016 TECHNIQUE: Portable frontal view of the chest was obtained. FINDINGS: Lung volumes are symmetric. Mild bibasilar atelectasis is suspected without additional consolidation bilaterally. No evidence of pneumothorax, pleural effusion, or pulmonary edema. Cardiac size is near the upper limits of normal. No acute osseous findings are seen. IMPRESSION: Suspect mild bibasilar atelectasis without additional acute findings. DICTATED BY: Gregor Caban MD DATE/TIME DICTATED:03/08/17209 BONE CHAR KILN OPERATOR:NAOMIE DATE/TIME TRANSCRIBED:03/08/17209 CONFIDENTIAL, DO NOT COPY WITHOUT APPROPRIATE AUTHORIZATION. <Electronically signed in Other Vendor System> SIGNED BY: Gregor Caban MD 03/08/17214 Initial ED EKG: NSR, no ST T wave changes Prior EKG: unchanged Rhythm Strip: normal sinus rhythm Departure Departure Disposition: HOME OR SELF CARE Condition: Stable Clinical Impression Primary Impression: CVA (cerebral vascular accident) Departure Forms: Customer Survey General Discharge Information Admission Note Spoke With: Bala Babcock MDviry Documentation of Exam: Documentation of any treatments & extenuating circumstances including Concerns Regarding Discharge (functional status, medication knowledge or non-compliance, living conditions, etc.) that warrant an admission rather than observation: [ TELE ADMISSION, NEUROLOGY CONSULT, PT/OT EVALUATION AND TREATMENT]
[2017-03-08 02:07] LABS: ABSOLUTE BASOPHIL COUNT 0.1 /CUMM (0.0-0.2); ABSOLUTE EOSINOPHIL COUNT 0.2 /CUMM (0.0-0.7); ABSOLUTE GRANULOCYTE CT 4.5 /CUMM (1.4-6.5); ABSOLUTE LYMPH COUNT 3.4 /CUMM (1.2-3.4); ABSOLUTE MONOCYTE COUNT 0.6 /CUMM (0.10-0.60); BASOPHIL % 1.1 % (0.0-2.0); EOSINOPHIL % 2.6 % (0-5); HEMATOCRIT 40.5 % (42-52); MEAN CORPUSCULAR HGB 27.9 PG (27.0-31.0); MEAN CORPUSCULAR HGB CONC 32.6 G/DL (33.0-37.0); MEAN CORPUSCULAR VOLUME 85.7 FL (80.0-94.0); MEAN PLATELET VOLUME 9.6 FL (7.4-10.4); PLATELET COUNT 260 /CUMM (130-400); RBC DISTRIBUTION WIDTH 15.7 % (11.5-14.5); RED BLOOD CELL CT 4.73 /CUMM (4.70-6.10); WHITE BLOOD CELL COUNT 8.8 /CUMM (4.8-10.8)
[2017-03-08 02:10] LABS: PT 11.4 SEC (9.4-12.5); PTT 42 SEC (25-37)
--- NOTE | 2017-03-08 02:15 | RADIOLOGY REPORT ---
EXAMINATION: XR PORTABLE CHEST CLINICAL INFORMATION: Weakness COMPARISON: 08/30/2016 TECHNIQUE: Portable frontal view of the chest was obtained. FINDINGS: Lung volumes are symmetric. Mild bibasilar atelectasis is suspected without additional consolidation bilaterally. No evidence of pneumothorax, pleural effusion, or pulmonary edema. Cardiac size is near the upper limits of normal. No acute osseous findings are seen. IMPRESSION: Suspect mild bibasilar atelectasis without additional acute findings.
--- NOTE | 2017-03-08 02:17 | CT SCAN REPORT ---
EXAMINATION: CT HEAD WITHOUT CONTRAST CLINICAL INFORMATION: Right-sided deficits for several days COMPARISON: 08/30/2016 TECHNIQUE: Contiguous axial imaging was performed from the skull base to vertex without intravenous administration of contrast. DLP: 629.32 mGy-cm FINDINGS: There is no evidence of acute intracranial hemorrhage or territorial infarction. No abnormal mass effect or midline shift is seen. Michele to white matter differentiation is well preserved. No extra-axial fluid collections are identified. The ventricles are normal in size. There is no abnormal attenuation within the brain parenchyma. The osseous structures and soft tissues are normal. There is partial opacification of the bilateral mastoid air cells. The visualized portions of the paranasal sinus are well-aerated. IMPRESSION: No acute intracranial pathology.
--- NOTE | 2017-03-08 04:55 | History & Physical ---
Rohit RIBEIRO,[facility] 03/08/17 0455: General Information and HPI MD Statement: I have seen and personally examined MAURA DALEY and documented this H&P. The patient is a 46 year old M who presented with a patient stated chief complaint of [right-sided weakness]. Source of Information: patient Exam Limitations: no limitations History of Present Illness: Mr. Daley is a 46-year-old gentleman with past medical history significant for asthma, PE on Pradaxa, alcohol abuse, bipolar disorder, schizophrenia and depression presents with right-sided weakness which started this . According to the patient, he was in his usual state of health until morning when he woke up fatigue and tired, later he noticed right upper extremity weakness as he was was unable to grab the cup when doing his breakfast is and had numbness with pins and needles in his right hand. Thought the symptoms would resolve on its own and he did not pursue any further care. Called his girlfriend yesterday after the symptoms got worse, who told the patient to go to the ER and called 911. Patient also reports right leg lagging and pressure in his right toes but states it's concerning as compared to the weakness in his right upper extremity. Denies any recent trauma, MVA, vision changes, change in medications, and any recent illnesses.Reports chronic headaches relieved with NSAIDs. Off Note, Patient has visiting nurse who comes twice a day to administer medications. He also has a twin brother with history of Pituatry tumor status post surgical removal and chemotherapy. Allergies/Medications Allergies: Coded Allergies: codeine (Intermediate, HIVES 08/30/16) amoxicillin (UNKNOWN 08/30/16) desipramine (HIVES 08/30/16) Home Med list Acamprosate Calcium 333 MG TABLET.DR 2 TAB PO TID ALCOHOL WITHDRAWAL ( Reported) Benztropine Mesylate 2 MG TABLET 1 TAB PO TID ANXIETY (Reported) Gabapentin (Neurontin) 300 MG CAPSULE 1 CAP PO 4 TIMES/DAY NERVES (Reported) Haloperidol 2 MG TABLET 1 TAB PO DAILY MENTAL HEALTH (Reported) [place] Carbonate ([place] Carbonate ER) 300 MG TABLET.ER 1 TAB PO DAILY BIPOLAR (Reported) [place] Carbonate ([place] Carbonate ER) 300 MG TABLET.ER 2 TAB PO QPM BIPOLAR (Reported) Olanzapine (Zyprexa) 7.5 MG TABLET 1 TAB PO BID MENTAL HEALTH (Reported) Olanzapine 15 MG TABLET 1 TAB PO QPM MENTAL HEALTH (Reported) Quetiapine Fumarate 400 MG TABLET 1 TAB PO QPM MENTAL HEALTH (Reported) Quetiapine Fumarate 50 MG TABLET 1 TAB PO QPM MENTAL HEALTH (Reported) Trazodone HCl 100 MG TABLET 2 TAB PO QPM SLEEP (Reported) Past History Travel History Traveled to [place] past 21 day No Medical History Neurological: NONE EENT: NONE Cardiovascular: NONE Respiratory: asthma, pulmonary embolism Gastrointestinal: NONE Hepatic: NONE Renal: NONE Musculoskeletal: NONE Psychiatric: bipolar disease, schizoprenia depression Endocrine: NONE Blood Disorders: NONE Cancer(s): NONE RADAR TESTER/Reproductive: NONE History of MRSA: No History of VRE: No History of CDIFF: No Surgical History Surgical History: none Past Family/Social History Psychosocial History Services at Home: Home Health Aide Smoking Status: Current Everyday Smoker ETOH Use: heavy use Illicit Drug Use: denies illicit drug use Functional Ability ADLs Independent: dressing, eating, toileting, bathing. Ambulation: independent IADLs Independent: shopping, housework, finances, food prep, telephone, transportation. Needs Assist: medication admin. Review of Systems Review of Systems Constitutional: Reports: no symptoms. EENTM: Reports: no symptoms. Cardiovascular: Reports: no symptoms. Respiratory: Reports: no symptoms. GI: Reports: no symptoms. Genitourinary: Reports: no symptoms. Musculoskeletal: Reports: joint pain. Skin: Reports: no symptoms. Neurological/Psychological: Reports: numbness, unable to move upper ext, weakness. Hematologic/Endocrine: Reports: no symptoms. Immunologic/Allergic: Reports: no symptoms. All Other Systems: Reviewed and Negative Exam & Diagnostic Data Last 24 Hrs of Vital Signs/I&O Vital Signs Date Time Temp Pulse Resp B/P B/P Pulse O2 O2 Flow FiO2 Mean Ox Delivery Rate 03/08 0640 98.6 69 18 118/68 97 Room Air 03/08 0457 97.9 70 16 123/80 98 Room Air 03/08 0314 98.2 75 16 131/84 97 Room Air 03/08 0106 97.9 84 18 125/89 98 Room Air Intake & Output 03/08 1600 03/08 0800 03/08 0000 Intake Total Output Total Balance Patient 229 lb Weight Weight Reported by Patient Measurement Method Physical Exam General Appearance Alert, Oriented X3, Cooperative, No Acute Distress Skin No Rashes, No Breakdown HEENT Atraumatic, PERRLA, EOMI, Mucous Membr. moist/pink Cardiovascular Regular Rate, Normal S1, Normal S2, Diastolic murmur Lungs Clear to Auscultation, Normal Air Movement Abdomen Normal Bowel Sounds, Soft, No Tenderness Neurological Normal Speech, Normal Tone, Sensation Intact, Cranial Nerves 3-12 NL, Strength 5/5 in DENISE and LL ext, hard finance specialist weak on the right side, strenght 3/ 5 in RUE and RLE, decreased sensation on the left hand, shuffling gait Extremities No Clubbing, No Cyanosis, No Edema, Normal Pulses, Pain with movement of right shoulder Last 24 Hrs of Labs/[place]: Laboratory Tests 03/08/17 0526: Anion Gap 18 H, Estimated GFR > 60, BUN/Creatinine Ratio 8.0, Lactic Acid 3.0 H, Troponin I < 0.01, Folate 5.2, CBC w Diff MAN DIFF ORDERED, RBC 4.58 L, MCV 86.5, MCH 27.5, RDW 15.6 H, MPV 9.3, Gran % 40.5 L, Lymphocytes % 47.4, Monocytes % 8.3, Eosinophils % 3.1, Basophils % 0.7, Absolute Granulocytes 3.2, Segmented Neutrophils 32 L, Band Neutrophils 1, Absolute Lymphocytes 3.7 H, Lymphocytes 62 H, Monocytes 3, Absolute Monocytes 0.6, Eosinophils 2, Absolute Eosinophils 0.2, Absolute Basophils 0.1, Platelet Estimate ADEQUAT, Polychromasia 1+, PUBS MCHC 31.8 L 03/08/17 0310: Urine Opiates Screen < 100.00, Methadone Screen < 40, Barbiturate Screen < 60, Ur Phencyclidine Scrn < 6.00, Amphetamines Screen < 100, U Benzodiazepines Scrn < 85, Urine Cocaine Screen < 50, Urine Cannabis Screen 6.80, Urinalysis LIGHT H , Urine Color STRAW, Urine Clarity CLEAR, Urine pH 7.0, Ur Specific [place] 1.010, Urine Protein NEG, Urine Ketones NEG, Urine Nitrite NEG, Urine Bilirubin NEG, Urine Urobilinogen 0.2, Ur Leukocyte Esterase NEG, Ur Microscopic SEDIMENT EXAMINED, Urine RBC 1-3, Urine WBC 1-3 H, Ur Epithelial Cells RARE, Urine Hemoglobin SMALL H, Urine Glucose NEG 03/08/17 0127: Anion Gap 18 H, Estimated GFR > 60, BUN/Creatinine Ratio 6.4 L, Glucose 113 H , Calcium 9.8, Phosphorus 3.1, Magnesium 2.1, Total Bilirubin 0.6, AST 29, ALT 27, Alkaline Phosphatase 66, Troponin I < 0.01, Total Protein 8.2, Albumin 4.9, Globulin 3.3, Albumin/Globulin Ratio 1.5, Vitamin B12 207 L, TSH 2.740, Free T4 0.80, PT 11.4, INR 1.09, APTT 42 H, CBC w Diff NO MAN DIFF REQ, RBC 4.73, MCV 85.7, MCH 27.9, RDW 15.7 H, MPV 9.6, Gran % 51.0, Lymphocytes % 38.0, Monocytes % 7.3, Eosinophils % 2.6, Basophils % 1.1, Absolute Granulocytes 4.5, Absolute Lymphocytes 3.4, Absolute Monocytes 0.6, Absolute Eosinophils 0.2, Absolute Basophils 0.1, PUBS MCHC 32.6 L, [place] 0.7, Serum Alcohol 61.0 Microbiology 03/08 711 NASOPHARYN: Influenza Virus A & B Rapid Smear - COMP Diagnostic Data EKG Results Sinus rhythm CXR Results Mild bibasilar atelectasis Other Results CT HEAD WO IV CONTRAST IMPRESSION: No acute intracranial pathology. XRY-SHOULDER COMPLETE-RIGHT IMPRESSION: 1. The glenohumeral joint is normal. 2. Minimal osteoarthrosis of the acromioclavicular joint. Assessment/Plan Assessment: Mr. Daley is a 46-year-old gentleman with past medical history significant for asthma, PE on Pradaxa, alcohol abuse, bipolar disorder, schizophrenia and depression presents with right-sided weakness which started this . A/P; 1. Acute right-sided weakness; R/O Stroke. - Will admit the patient to telemetry floor. - Neurochecks every 2 hours - Neurology consult - Continue aspirin and statin - Brain MRI. - Cardiology consult - Echocardiogram; rule out PFO, patient has a right-sided murmur. - Serial troponins and EKG to rule out ACS. - Patient complaining of right shoulder pain with movement; will do right shoulder x-ray to rule out radial nerve compression/injury. - PT OT evaluation. - Patient passed swallow evaluation done in the ER. 2. Alcohol withdrawl; -Patient was admitted at [facility] in August 2016 for alcohol detox, left AMA at that time. - Continues to drink vodka, last drink was yesterday morning. - Serum alcohol level is 62. - We will start the patient on CIWA protocol. - Check mag and phosphorus levels. - Give high-dose thiamine and folate. - Urine toxicology pending 3. Lactic acidosis with anion gap of 18; - Unclear etiology - Continue IV fluids. - 4. History of bipolar disorder, schizophrenia and depression; - Continue home medications - Psych consult - patient wants to see a psychiatrist. - Check Li levels. 5. History of PE; - Continue Pradaxa 6. Smoking; - Nicotine patch DVT prophylaxis; Patient is on Pradaxa Patient is full code As Ranked By This Provider Problem List: 1. Acute right-sided weakness Core Measures/Misc (10/31) Acute Coronary Syndrome ACS Diagnosis: No Congestive Heart Failure Congestive Heart Failure Diagnosis No Cerebrovascular Accident CVA/TIA Diagnosis: Yes Date Last Known Well: 03/03/17 Time Last Known Well: 2029 Symptom Start Date: 03/03/17 Symptom Start Time: 2029 Swallow Evaluation Pass VTE (View Protocol) VTE Risk Factors Age>40 No Mechanical VTE Prophylaxis d/t N/A MechProphylax Ordered (u) No VTE Pharm Prophylaxis d/t NA PharmProphylax ordered Sepsis (View protocol) Sepsis Present: No Sadiq RIBEIRO, [facility] 03/08/17 0639: Attending MD Review Statement Attending Statement Attending MD Statement: examined this patient, discuss w/resident/PA/HIGH SCHOOL ACADEMIC COACH, agreed w/resident/PA/HIGH SCHOOL ACADEMIC COACH, reviewed images, amended to note Attending Assessment/Plan: 46 yo M smoker, with h/o alcohol abuse, BPD, PTSD, schizoaffective disorder, asthma, PE on pradaxa, is here for evaluation of right sided weakness that was first noticed 5 days ago. Patient reports difficulty moving his right arm, unable to grab his cup or hold on to a spoon while eating. He did not come for evaluation hoping it would get better. But his girlfriend checked on him tonight and called EMS. He also reports parethesias tingling and numbness to his right hand, and pain in his right shoulder. He denies sleeping on his right arm or with his hand dangling on the bed. No previous h/o stroke, TIA or MS. He was last detoxed in August 2016, reports being sober for 2 months but started drinking after Vodka 1/2 pint 4-5 times a week. Last drink was prior coming to ER. Vitals stable. Neuro: AAO, no slurring of speech, PERRL, no visual deficits, no obvious facial paresis, cranial nerves intact, pronator drift to right, right hand grasp is weaker than left hand, power 3/5 right 5/5 left, sensation reduced on right hand. LE power 3-4/5 in right leg, 5/5 left leg, sensation intact, plantars unequivocal, reflexes +. Walks with a slow shuffling gait and tends to drag his right foot. Labs: Na 147, bicarb 20, AG 18, BUN 7, glucose 113, trop neg. UA neg, Utox neg. Alcohol 61. CT head: no acute pathology. CXR: mild bibasilar atelectasis. EKG: Sinus rhythm. Echo (2011): EF 55%. Passed bedside swallow eval. Assessment and plan: 1. Right sided deficit concerning for stroke 2. Alcohol dependence and withdrawal 3. Rule out radial nerve injury 4. Anion gap metabolic acidosis 5. History of schizoaffective d/o, bipolar, PTSD - ?conversion disorder 6. History of PE on pradaxa 7. 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 - Smoking cessation counseling, nicotine patch. DVT ppx Pradaxa. Full code. Dianna Arnett MD 03/08/17 0643: Resident Review Statement Resident Statement: examined this patient, discussed with editing intern, agreed with editing intern Other Findings: HPI:This is a 46 yo male with PMH of Schizoaffective disorder, depression, bipolar, asthma, PE, etoh abuse, who comes in for CC r. arm and leg weakness. Per pt symptoms started 4 days ago, he noted them as soon as he woke up. He thought the symptoms would be transient so he held off seeking medical care, but he told his girlfriend of symptoms and she forced him to come to ED today. He mainly notes r. arm weakness but also states that he has some r. leg weakness with some dragging. He also endorses some pins and needles sensation in his fingertips. He denies any recent trauma, change in vision, any change in meds, possible OD of meds (a VNA comes BID to administer his meds under DOTS like regimen), recent viral illness,or acute headache, loss of consciousness, seizure like activity, or change of bladder or bowel function. Social hx significant for etoh use (he endorses use today) he gives vague hx of stopping use of 6 months and re-starting today but endorses a different hx to my attending. Denies any IVDA, denies use of cannabis but does state that he is around those who do smoke it. Fam hx significant for a pituitary tumor in a twin brother. Pt denies any significant social stressors prior to his weakness. Note that he is unable to verify his psych med regimen to me as it is usually locked up and he does not have access to his pills. Assessment:This is a 46 yo male with significant PMH of psychiatric illness, etoh withdrawl who comes in for CC of r. arm leg and weakness. DDX includes CVA, Seizure with ? Todds paralysis, anti-psychotic medication side effect, etoh withdrawl or conversion disorder. Note he has hx of PE so he could have embolized a clot if he had PFO. PLAN: R. sided weakness: See above for DDX. Pt phsyical exam is unusual bc he has strength is his arm but he in unable to raise against gravity. His gait is disturbed as he loses balance and unable to do heel to toe and is Romberg positive. CT head negative for evidence of hemorrhage or CVA. * R shoulder cxr * Psych consult * verify his meds in AM * Hi dose thiamine * Echo * Consider cardio * MRI * EEG AGMA: Likely 2/2 lactic acid. Unsure why pt has + lactic. ?? Secondary to medication or etoh. * IVF with NS * Trend lactic * Monitor gap Etoh withdrawl: * CIWA * PRN Ativan * Ativan 2 q6 scheduled * Hi dose thiamine * multivite * folate
[2017-03-08 05:58] LABS: ABSOLUTE BASOPHIL COUNT 0.1 /CUMM (0.0-0.2); ABSOLUTE EOSINOPHIL COUNT 0.2 /CUMM (0.0-0.7); ABSOLUTE GRANULOCYTE CT 3.2 /CUMM (1.4-6.5); ABSOLUTE LYMPH COUNT 3.7 /CUMM (1.2-3.4); ABSOLUTE MONOCYTE COUNT 0.6 /CUMM (0.10-0.60); BASOPHIL % 0.7 % (0.0-2.0); EOSINOPHIL % 3.1 % (0-5); GRANULOCYTE % 40.5 % (42.2-75.2); HEMATOCRIT 39.6 % (42-52); MEAN CORPUSCULAR HGB 27.5 PG (27.0-31.0); MEAN CORPUSCULAR HGB CONC 31.8 G/DL (33.0-37.0); MEAN CORPUSCULAR VOLUME 86.5 FL (80.0-94.0); MEAN PLATELET VOLUME 9.3 FL (7.4-10.4); PLATELET COUNT 268 /CUMM (130-400); RBC DISTRIBUTION WIDTH 15.6 % (11.5-14.5); RED BLOOD CELL CT 4.58 /CUMM (4.70-6.10); WHITE BLOOD CELL COUNT 7.8 /CUMM (4.8-10.8)
[2017-03-08 06:01] LABS: LITHIUM 0.7 mmol/L (0.6-1.2)
--- NOTE | 2017-03-08 06:14 | Admission Certification ---
Admission Certification Certification Statement - As attending physician, I certify that at the time of - admission, based on clinical presentation, severity of - symptoms, need for further diagnostic testing and - therapeutic interventions, and risk of adverse outcomes - without in-hospital treatment, in my clinical assessment, - this patient requires an acute hospital stay for a minimum - of two nights or longer. I have also considered psychsocial - factors such as support system, advanced age, financial - issues, cognitive issues, and failed out-patient treatments, - past re-admission history, safety of patient, and lack of - compliance as applicable. Specific rationale supporting this admission is: Right sided weakness, rule out stroke. Alcohol withdrawal.
--- NOTE | 2017-03-08 07:19 | Event Note ---
Event Note Event Note: 46 yo M smoker with history of alcohol abuse, bipolar, schizoaffective disorder, PTSD, asthma, PE on Pradaxa, presented to the ED with complaints of right-sided upper and lower extremity weakness 5 days ago. He is admitted in the telemetry floor for the evaluation of his neurological complaints. CAT scan did not reveal any acute hemorrhage or mass lesion/effect. MRI is yet to be done. Neurology has been consulted awaiting recommendations. Overnight his CIWA scores are low. VSS and this morning except for the initial complaint, he does not appear to be in any distress and does not give any other symptoms. In case of MRI being negative, we will consider Psychiatry service for further evaluation as well. In the meantime, will continue CIWA protocol. Of note, Medication list from [facility] [phone]: * Zyprexa 15 mg BID * Pradaxa 75 mg daily * haldol 2 mg q AM * Benztropine 2 mg TID * Neutontin 300 mg x4/day * [place] XR 300 mg 1 pill in AM, 2 pills HS * Seroquel 50 mg + Seroquel 400 mg (total 450 mg) HS * Acamposate 333 mg 2 pills TID * Vit D 50,000 U weekly * Folic acid 1 mg daily
--- NOTE | 2017-03-08 08:46 | RADIOLOGY REPORT ---
EXAMINATION: XR SHOULDER, RIGHT CLINICAL INFORMATION: Right shoulder pain and decreased mobility. COMPARISON: None TECHNIQUE: AP external rotation, Grashey, scapular Y, and axillary views of the right shoulder. FINDINGS: Alignment is normal. Small osteophytes are seen at the acromioclavicular joint. The acromiohumeral distance is normal. No evidence of os acromiale or hook shaped acromion. The intact humeral head is well-positioned over the glenoid; glenohumeral joint space is well-preserved. The visualized right lung is normal. IMPRESSION: 1. The glenohumeral joint is normal. 2. Minimal osteoarthrosis of the acromioclavicular joint.
--- NOTE | 2017-03-08 13:04 | Cons- Neurology ---
General Information and HPI Consulting Request Date of Consult: 03/08/17 Requested By: Reyna Bautista MD History of Present Illness: 46-year-old male with history of bipolar disorder, PTSD and ethanol abuse is being admitted to hospital due to complaints of right-sided numbness and pain. He is a somewhat poor historian. He states that 5 days ago he began to experience a numbness and pain in the right upper extremity and to a lesser extent the right lower extremity. This was unassociated with facial symptoms, visual disturbance, slurred speech, recent trauma or fever. He did not seek medical attention until 4-5 days afterward when he informed his girlfriend and he was urged to present to the [facility] for further evaluation. He has no prior history of stroke. There is been no recent trauma or reported, intercurrent medical illness. CAT scan of the brain on admission was unrevealing. Allergies/Medications Allergies: Coded Allergies: codeine (Intermediate, HIVES 08/30/16) amoxicillin (UNKNOWN 08/30/16) desipramine (HIVES 08/30/16) Home Med List: Acamprosate Calcium 333 MG TABLET.DR 2 TAB PO TID ALCOHOL WITHDRAWAL ( Reported) Benztropine Mesylate 2 MG TABLET 1 TAB PO TID ANXIETY (Reported) Gabapentin (Neurontin) 300 MG CAPSULE 1 CAP PO 4 TIMES/DAY NERVES (Reported) Haloperidol 2 MG TABLET 1 TAB PO DAILY MENTAL HEALTH (Reported) [place] Carbonate ([place] Carbonate ER) 300 MG TABLET.ER 1 TAB PO DAILY BIPOLAR (Reported) [place] Carbonate ([place] Carbonate ER) 300 MG TABLET.ER 2 TAB PO QPM BIPOLAR (Reported) Olanzapine (Zyprexa) 7.5 MG TABLET 1 TAB PO BID MENTAL HEALTH (Reported) Olanzapine 15 MG TABLET 1 TAB PO QPM MENTAL HEALTH (Reported) Quetiapine Fumarate 400 MG TABLET 1 TAB PO QPM MENTAL HEALTH (Reported) Quetiapine Fumarate 50 MG TABLET 1 TAB PO QPM MENTAL HEALTH (Reported) Trazodone HCl 100 MG TABLET 2 TAB PO QPM SLEEP (Reported) Review of Systems Review of Systems: Notable for right upper extremity greater than right lower extremity weakness and painful sensations. He denies recent fever, chills, rash, diplopia, dysarthria, dysphagia, chest pain, shortness of breath, vomiting, vertigo, gait ataxia, joint inflammation or bleeding disturbance Past History Travel History Traveled to [place] past 21 day No Medical History Neurological: NONE EENT: NONE Cardiovascular: NONE Respiratory: asthma, pulmonary embolism Gastrointestinal: NONE Hepatic: NONE Renal: NONE Musculoskeletal: NONE Psychiatric: bipolar disease, schizoprenia depression Endocrine: NONE Blood Disorders: NONE Cancer(s): NONE SET O TYPE OPERATOR/Reproductive: NONE Surgical History Surgical History: 1 Psychosocial History Where Do You Live? Home Services at Home: Home Health Aide Smoking Status: Current Everyday Smoker ETOH Use: heavy use Illicit Drug Use: denies illicit drug use Functional Ability ADLs Independent: dressing, eating, toileting, bathing. Ambulation: independent IADLs Independent: shopping, housework, finances, food prep, telephone, transportation. Needs Assist: medication admin. Exam & Diagnostic Data Vital Signs and I&O Vital Signs Date Time Temp Pulse Resp B/P B/P Pulse O2 O2 Flow FiO2 Mean Ox Delivery Rate 03/08 0800 Room Air 03/08 0640 98.6 69 18 118/68 97 Room Air 03/08 0457 97.9 70 16 123/80 98 Room Air 03/08 0314 98.2 75 16 131/84 97 Room Air 03/08 0106 97.9 84 18 125/89 98 Room Air Intake & Output 03/08 1600 03/08 0800 03/08 0000 Intake Total 240 Output Total Balance 240 Intake, Oral 240 Number 1 Bowel Movements Patient 0 lb Weight Weight Reported by Patient Measurement Method Middle-aged male in no acute distress. Affect was flat. The head was normocephalic and atraumatic. The patient was awake, alert and cooperative. Higher cortical function was grossly intact. Speech was fluent. Pupils were equal and reactive. Extraocular movements were full. There was no nystagmus .There was no field cut. Facial strength and sensation was intact. Hearing was normal. Tongue was midline. The motor examination showed no drift of the upper extremities. There was no gross lateralizing weakness. Deep tendon reflexes were symmetric. Plantar responses were flexor. Fine finger movements and rapid alternating movements were performed normally. There was no ataxia on finger-to -nose testing. He put altered light touch over the right arm and leg. Joint position sense was intact. He did not split the midline to vibratory testing. The gait was not evaluated. Assessment/Plan Assessment: Paresthesias of right arm and leg in association with some painetiology uncertain. His examination shows no focal or lateralizing features apart from the subjective complaint of altered sensation. One would think that a left hemispheric lesion, if present, would have been noticed on CT scan 5 days post symptom onset. Recommendations: Would proceed with a nonenhanced MRI of the brain to rule out the small possibility of a minor thalamic infarct. However, I believe the possibility of this is quite low. Should it be negative, we would merely observe briefly, ambulate with physiotherapy, and confer with his psychiatrists. Consult Acknowledgment - Thank you for your consult request.
[2017-03-08 15:46] VITALS: BP 158/78
[2017-03-08 21:43] VITALS: BP 116/82
[2017-03-09 06:47] VITALS: BP 108/74
--- NOTE | 2017-03-09 07:29 | PN- Housestaff ---
Elliot RIBEIRO,Elmer 03/09/17 0728: Subjective Follow-up For: Right sided weakness Complaints: no complaints Tele-Events Since Last Visit: Sinus rhythm, sinus tachycardia, heart rate ranging from 87-111. Subjective: I followed up and examined the patient today. There is not much change since yesterday, in terms of his motor system. He doesn't have any new complaints, vitals have been stable, no other events noted. Review of Systems Constitutional: Reports: see HPI. Objective Last 24 Hrs of Vital Signs/I&O Vital Signs Date Time Temp Pulse Resp B/P B/P Pulse O2 O2 Flow FiO2 Mean Ox Delivery Rate 03/09 1427 98.3 94 15 110/70 93 03/09 1400 76 03/09 1200 78 03/09 1000 90 03/09 0911 80 03/09 0647 97.4 85 18 108/74 95 Room Air 03/08 2143 98.3 92 18 116/82 95 Room Air Intake & Output 03/09 1600 03/09 0800 03/09 0000 Intake Total 120 300 Output Total 850 Balance 120 -550 Intake, Oral 120 300 Output, Urine 850 Physical Exam General Appearance: Oriented X3, Cooperative, DROWSY Other Physical Findings: Head: Normocephalic, atraumatic Eyes: Pupils normal in size, regular, reacting to light and accommodation, EOM normal Throat/mouth: Moist mucosa Neck: Supple, full range of motion, no thyromegaly Heart: Regular rate, regular rhythm Lung: Normal breath sound bilaterally Added sound not heard Abd: Soft, non-tender, no distention appreciated Back: Normal range of motion Extremities: Normal knee exam bilaterally, no pedal edema Neurologic: Alert, oriented x3, Cranial exam grossly intact, Speech is clear and coherent, Rt sided weakness no change since yesterday, no facial changes Skin: Warm and dry Psychiatric: Calm, cooperative, coherant, no SI, no HI Current Medications: Current Medications Sig/Sebastian Start time Last Medication Dose Route Stop Time Status Admin Acetaminophen 650 MG Q6P PRN 03/08 1015 AC PO Acetaminophen 1,000 MG Q6P PRN 03/08 0445 AC IV Benztropine Mesylate 2 MG TID 03/08 1004 AC 03/08 PO 2126 Cyanocobalamin 1,000 MCG DAILY 03/09 1000 AC PO Cyanocobalamin 250 MCG DAILY 03/08 1000 DC 03/08 PO 1206 Folic Acid 1 MG DAILY 03/08 1000 AC 03/08 PO 1206 Gabapentin 300 MG 4 TIMES/DAY 03/08 1005 AC 03/08 PO 2119 Haloperidol 2 MG DAILY 03/08 1005 AC 03/08 PO 1206 Influenza Virus 0.5 ML ONCE ONE 03/08 1000 DC 03/08 Vaccine IM 03/08 1001 2140 [place] Carbonate 600 MG QPM 03/08 2200 AC 03/08 PO 2119 [place] Carbonate 300 MG DAILY 03/08 1005 AC 03/08 PO 1206 Lorazepam 1.5 MG Q12H 03/10 0600 AC PO 03/10 1801 Lorazepam 1.5 MG Q6 03/09 0600 AC PO 03/09 1801 Lorazepam 0 .STK-MED ONE 03/08 1203 DC PO Lorazepam 2 MG Q6 03/08 0600 DC 03/08 PO 03/09 0001 1710 Lorazepam 1 MG Q1P PRN 03/08 0530 AC IV Multivitamins 1 TAB DAILY 03/08 1000 AC 03/08 PO 1206 Nicotine 14 MG DAILY 03/08 1823 AC 03/08 TOP 2116 Olanzapine 15 MG QPM 03/08 2200 AC 03/08 PO 2125 Ondansetron HCl 4 MG Q6P PRN 03/08 0445 AC IV Quetiapine Fumarate 400 MG AT BEDTIME 03/08 2200 AC 03/08 PO 2119 Quetiapine Fumarate 50 MG QPM 03/08 2200 AC 03/08 PO 2125 Sodium Chloride 1,000 ML ONCE ONE 03/08 0645 DC 03/08 IV 03/08 1644 0646 Thiamine HCl 100 MG DAILY 03/09 1000 AC PO Thiamine HCl 250 MG Q8H 03/08 0700 DC 03/09 Sodium Chloride 100 ML IV 03/08 2329 0713 Last 24 Hrs of Lab/[place] Results Last 24 Hrs of Labs/Mics: Laboratory Tests 03/09/17 0010: Lactic Acid 0.9 03/08/17 1817: Lactic Acid Cancelled 03/08/17 1517: Lactic Acid Cancelled 03/08/17 1100: Troponin I < 0.01 Assessment/Plan Assessment: 46 yo M smoker with history of alcohol abuse, bipolar, schizoaffective disorder, PTSD, asthma, PE on Pradaxa, presented to the ED with complaints of right-sided upper and lower extremity weakness 5 days ago. He is admitted in the telemetry floor for the evaluation of his neurological complaints. CAT scan did not reveal any acute hemorrhage or mass lesion/effect. MRI is yet to be done. Neurology has been consulted and is also awaiting MRI. Overnight his CIWA scores are low. VSS and this morning except for the initial complaint, he does not appear to be in any distress and does not give any other symptoms. In case of MRI being negative, we will consider Psychiatry service for further evaluation as well. In the meantime, will continue CIWA protocol. Diet: Regular diet DVT ppx:SQ Lovenox Code status: Full code Problem List: 1. Limb weakness Pain Ratin Pain Location: - Pain Goal: Pain 4 or less Pain Plan: prn Tomorrow's Labs & Rationales: lipid panel, BEP Michele RIBEIRO,Reyna 03/09/17 1343: Attending MD Review Statement Attending Statement Attending MD Statement: examined this patient, discuss w/resident/PA/POLICY ADVISER, agreed w/resident/PA/POLICY ADVISER, reviewed EMR data (avail), discussed with nursing, discussed with case mgmt, amended to note Attending Assessment/Plan: Patient seen and examined. Resting comfortably and was in any acute distress. No issues overnight. No new complaints by nursing staff. He is afebrile and hemodynamically stable. On examination he continues to have right upper extremity and right lower extremity weakness. He has no drift of his upper extremities. Neurology consultation appreciated. Concern about underlying psychiatric disorder noted. Recommendations: -Awaiting MRI results. If no lesion is noted that would explain his right-sided weakness recommend consultation with psychiatry service to evaluate for possible underlying psychiatric etiology of his symptoms. -He CIWA scores have been persistently 0. No need for further management. -Physical therapy to mobilize patient as tolerated. -Repeat serum chemistry in a.m. Add fasting lipid panel to his labs. Begin on statin therapy if LDL is above goal.
[2017-03-09 14:27] VITALS: BP 110/70
--- NOTE | 2017-03-09 15:17 | ECHOCARDIOGRAM REPORT ---
MAURA DALEY Age: 46 : 1970 Gender: M Exam Date: 03/08/2017 16:50 Exam Location: 1 [address] Ht (in): 75 Wt (lb): 229 BSA: 2.36 BP: 118 / 68 Ordering Physician: Katie Arnett MD Referring Physician: Katie Arnett MD Technologist: Hina Rao [facility] Room Number: 185-01 Indications: STROKE Rhythm: Sinus Technical Quality: Fair FINDINGS Left Ventricle Normal size left ventricle. Mild concentric left ventricular hypertrophy. Normal left ventricular wall motion. Normal left ventricular ejection fraction visually estimated at 55%. Normal left ventricular diastolic filling pattern for age. Right Ventricle Normal right ventricular size and function. Right Atrium Normal right atrial size. Left Atrium Normal left atrial size. Mitral Valve Structurally normal mitral valve. Trace mitral regurgitation. Aortic Valve Aortic valve not well visualized, grossly normal. No aortic valve stenosis or regurgitation. Tricuspid Valve Structurally normal tricuspid valve. Trace tricuspid regurgitation. No evidence of pulmonary hypertension. Right ventricular systolic pressure estimated to be within the normal range at 9 mmHg. Pulmonic Valve Pulmonic valve not well visualized, grossly normal. Trace pulmonic regurgitation. Pericardium No pericardial effusion. Great Vessels Normal size aortic root. Normal size inferior vena cava. CONCLUSIONS Normal size left ventricle. Mild concentric left ventricular hypertrophy. Normal left ventricular wall motion. Normal left ventricular diastolic filling pattern for age. Normal left ventricular ejection fraction visually estimated at 55%. Normal right ventricular size and function. Normal atrial size. Trace mitral regurgitation. Trace tricuspid regurgitation. No evidence of pulmonary hypertension. Trace pulmonic regurgitation. Shay Santiago M.D. (Electronically Signed) Final Date: 09 March 2017 15:16 MEASUREMENTS (Male / Female) Normal Values 2D ECHO LV Diastolic Diameter PLAX 4.8 cm 4.2 - 5.9 / 3.9 - 5.3 cm LV Systolic Diameter PLAX 3.4 cm 2.1 - 4.0 cm LV Fractional Shortening PLAX 29.2 % 25 - 46 % LV Ejection Fraction 2D Teich 55.9 % IVS Diastolic Thickness 1.3 cm LVPW Diastolic Thickness 1.3 cm LV Relative Wall Thickness 0.5 RV Internal Dim ED PLAX 2.5 cm 1.9 - 3.8 cm LVOT Diameter 2.2 cm Aortic Root Diameter 3.0 cm LA Systolic Diameter LX 3.0 cm 3.0 - 4.0 / 2.7 - 3.8 cm LA Volume 19.0 cm 18 - 58 / 22 - 52 cm Ascending Aorta Diameter 3.0 cm DOPPLER AV Peak Velocity 124.0 cm/s AV Peak Gradient 6.2 mmHg AV Mean Velocity 92.9 cm/s AV Mean Gradient 4.0 mmHg AV Velocity Time Integral 24.5 cm LVOT Peak Velocity 114.0 cm/s LVOT Peak Gradient 5.2 mmHg LVOT Mean Velocity 76.3 cm/s LVOT Mean Gradient 3.0 mmHg LVOT Velocity Time Integral 22.6 cm LVOT Stroke Volume 85.9 cm AV Area Cont Eq vti 3.5 cm AV Area Cont Eq pk 3.5 cm MV Peak Velocity 95.9 cm/s MV Peak Gradient 3.7 mmHg MV Mean Velocity 58.9 cm/s MV Mean Gradient 2.0 mmHg Mitral E Point Velocity 84.4 cm/s Mitral A Point Velocity 60.7 cm/s Mitral E to A Ratio 1.4 MV PHT Velocity 99.9 cm/s MV Deceleration [place] 475.0 cm/s MV Pressure Half Time 63.1 ms MV Area PHT 3.5 cm MV Deceleration Time 166.0 ms TR Peak Velocity 73.0 cm/s TR Peak Gradient 2.1 mmHg Right Atrial Pressure 5.0 mmHg Pulmonary Artery Systolic Pressu 7.1 mmHg Right Ventricular Systolic Press 7.1 mmHg PV Peak Velocity 114.0 cm/s PV Peak Gradient 5.2 mmHg PV Mean Velocity 81.5 cm/s PV Mean Gradient 3.0 mmHg PV Velocity Time Integral 27.0 cm LV E' Lateral Velocity 10.7 cm/s Mitral E to LV E' Lateral Ratio 7.9 LV E' Septal Velocity 9.3 cm/s Mitral E to LV E' Septal Ratio 9.1
[2017-03-09] MEDS ORDERED: VITAMIN B-121000 MC3 PO (17:27)
[2017-03-09] MEDS ORDERED: ONE DAILY MULT1 EAC2 PO (17:27)
[2017-03-09] MEDS ORDERED: VITAMIN B-1100 MG PO (17:27)
[2017-03-09] MEDS ORDERED: FOLIC ACID1 M1 PO (17:27)
--- NOTE | 2017-03-09 17:28 | Patient Discharge Instructions ---
Discharge Instructions General Discharge Information You were seen/treated for: Right-sided hemiparesis, improving. Right rotator cuff partial tear. Special Instructions: Please follow-up with care, within a week. An appointment has been requested for you already. Please follow-up with your primary care physician, and neurology within a week after discharge. Please return to emergency if symptoms worsen Diet Continue normal diet: Yes Recommended Diet: Heart Healthy Activity Full Activity/No Limits: No Activity Self Limited: Yes Acute Coronary Syndrome Inclusion Criteria At DC or during hospital stay patient has or had the following: ACS DIAGNOSIS No Discharge Core Measures Meds if any: Prescribed or Continued at Discharge Meds if any: NOT Prescribed or Continued at Discharge Congestive Heart Failure Inclusion Criteria At DC or during hospital stay patient has or had the following: CHF DIAGNOSIS No Discharge Core Measures Meds if any: Prescribed or Continued at Discharge Meds if any: NOT Prescribed or Continued at Discharge Cerebrovascular accident Inclusion Criteria At DC or during hospital stay patient has or had the following: CVA/TIA Diagnosis No Discharge Core Measures Meds if any: Prescribed or Continued at Discharge Meds if any: NOT Prescribed or Continued at Discharge Venous thromboembolism Inclusion Criteria VTE Diagnosis No VTE Type NONE VTE Confirmed by (Test) NONE Discharge Core Measures - Per Current guidelines, there needs to be overlap - treatment for the first 5 days of Warfarin therapy. - If discharged on Warfarin prior to 5 days of - overlap therapy, the patient will need to be - assessed for post discharge needs including - *Post discharge parental anticoagulation - *Warfarin and/or parental anticoagulation education - *Follow up date to check INR post discharge At least 5 days overlap therapy as Inpatient No Meds if any: Prescribed or Continued at Discharge Note: Overlap Therapy is Warfarin and Anticoagulant Meds if any: NOT Prescribed or Continued at Discharge
[2017-03-09 22:33] VITALS: BP 112/74
[2017-03-10 07:04] VITALS: BP 126/86
--- NOTE | 2017-03-10 07:43 | PN- Housestaff ---
Elliot RIBEIRO,Elmer 03/10/17 0743: Subjective Follow-up For: Right sided weakness Complaints: no complaints Tele-Events Since Last Visit: off tele Subjective: I followed up and examined the patient today. Pt can now move his limbs against gravity, but seems weak. No other changes, cathy neurological. CIWA 0. Will get MRI later today. Had one episode of tachycardia to 150, EKG done overnight- sinus tachycardia. Asymptomatic. Review of Systems Constitutional: Reports: see HPI. Objective Last 24 Hrs of Vital Signs/I&O Vital Signs Date Time Temp Pulse Resp B/P B/P Pulse O2 O2 Flow FiO2 Mean Ox Delivery Rate 03/10 1600 83 03/10 1426 97.9 87 20 128/78 97 03/10 1400 78 03/10 1200 68 03/10 1000 90 03/10 0824 80 03/10 0704 97.2 81 12 126/86 96 Room Air 03/09 2233 98.0 118 16 112/74 94 Room Air Intake & Output 03/10 1600 03/10 0800 03/10 0000 Intake Total 400 120 120 Output Total 300 Balance 400 -180 120 Intake, Oral 400 120 120 Output, Urine 300 Physical Exam General Appearance: Alert, Oriented X3, Cooperative, No Acute Distress, overweight Other Physical Findings: Head: Normocephalic, atraumatic Eyes: Pupils normal in size, regular, reacting to light and accommodation, EOM normal Throat/mouth: Moist mucosa Neck: Supple, full range of motion, no thyromegaly Heart: Regular rate, regular rhythm Lung: Normal breath sound bilaterally Added sound not heard Abd: Soft, non-tender, no distention appreciated Back: Normal range of motion Extremities: Normal knee exam bilaterally, no pedal edema Neurologic: Alert, oriented x3, Cranial exam grossly intact, Speech is clear and coherent, Rt sided weakness IS BETTER since yesterday, CAN LIFT HIS UPPER AND LOWER LIMB AGAINST GRAVITY, AND CAN WEAKLY MOVE AGAINST RESISTANCE, no facial changes Skin: Warm and dry Psychiatric: Calm, cooperative, coherant, no SI, no HI Current Medications: Current Medications Sig/[place] Start time Last Medication Dose Route Stop Time Status Admin Acetaminophen 650 MG Q6P PRN 03/08 1015 AC PO Acetaminophen 1,000 MG Q6P PRN 03/08 0445 AC IV Benztropine Mesylate 2 MG TID 03/08 1004 AC 03/10 PO 2100 Cyanocobalamin 1,000 MCG DAILY 03/09 1000 AC 03/10 PO 0943 Enoxaparin Sodium 40 MG DAILY 03/09 1716 AC 03/10 SC 0941 Folic Acid 1 MG DAILY 03/08 1000 AC 03/10 PO 0942 Gabapentin 300 MG 4 TIMES/DAY 03/08 1005 AC 03/10 PO 2100 Gemfibrozil 600 MG BID 03/10 1042 AC 03/10 PO 2100 Haloperidol 2 MG DAILY 03/08 1005 AC 03/10 PO 0941 [place] Carbonate 600 MG QPM 03/08 2200 AC 03/10 PO 2101 [place] Carbonate 300 MG DAILY 03/08 1005 AC 03/10 PO 0942 Lorazepam 0.5 MG ONE ONE 03/11 0600 AC PO 03/11 0601 Lorazepam 1 MG Q12H 03/10 1800 DC 03/10 PO 03/10 1801 1732 Lorazepam 1.5 MG Q12H 03/10 0600 DC 03/10 PO 03/10 1801 0512 Lorazepam 0.5 MG .STK-MED ONE 03/10 0511 DC PO 03/10 0512 Lorazepam 1 MG Q1P PRN 03/08 0530 AC IV Multivitamins 1 TAB DAILY 03/08 1000 AC 03/10 PO 0943 Nicotine 14 MG DAILY 03/08 1823 AC 03/10 TOP 1311 Olanzapine 15 MG QPM 03/08 2199 AC 03/10 PO 2100 Ondansetron HCl 4 MG Q6P PRN 03/08 0445 AC IV Quetiapine Fumarate 400 MG AT BEDTIME 03/08 2199 AC 03/10 PO 2101 Quetiapine Fumarate 50 MG QPM 03/08 220 AC 03/10 PO 2100 Thiamine HCl 100 MG DAILY 03/09 1000 AC 03/10 PO 0941 Last 24 Hrs of Lab/[place] Results Last 24 Hrs of Labs/Mics: Laboratory Tests 03/10/17 0644: Anion Gap 15, Estimated GFR > 60, BUN/Creatinine Ratio 11.0, Magnesium 1.9 Assessment/Plan Assessment: 46 yo M smoker with history of alcohol abuse, bipolar, schizoaffective disorder, PTSD, asthma, PE on Pradaxa, presented to the ED with complaints of right-sided upper and lower extremity weakness 5 days ago. He is admitted in the telemetry floor for the evaluation of his neurological complaints. CAT scan did not reveal any acute hemorrhage or mass lesion/effect. MRI doen today was negative. No obvious reason for weakness noted sofar. Possible differentials could be related to his mental health conditions, e.g. conversion disorder. Neurology has been on board and has requested Psych eval. Overnight his CIWA scores has been zero. VSS except for one episode of sinus tachycardia last night around 10 pm, asymptomatic. He does not appear to be in any distress and does not give any other symptoms. In the meantime, will continue CIWA protocol and taper his Lorazepam. Patient and his girlfriend updated together about the results and next step regarding psych eval. Update: Patient's [facility] health provider [facility] was contacted by Jeff Freedman APRN (Psych service) today and his previous records obtained. Awaiting psych evaluation. Discharge disposition: Home with PT most likely. Diet: Regular diet DVT ppx:SQ Lovenox Code status: Full code Problem List: 1. Limb weakness Pain Ratin Pain Location: - Pain Goal: Pain 4 or less Pain Plan: prn Tomorrow's Labs & Rationales: - Reyna Bautista MD 03/10/17 1028: Attending MD Review Statement Attending Statement Attending MD Statement: examined this patient, discuss w/resident/PA/REGISTRATION COORDINATOR, agreed w/resident/PA/REGISTRATION COORDINATOR, reviewed EMR data (avail), discussed with nursing, discussed with case mgmt, amended to note Attending Assessment/Plan: Patient seen and examined. I did observe him ambulating around the unit with the use of walker and assisted by the physical therapist. Physical therapy service reports that he is a little unsteady but able to ambulate with use of walker. On examination he continues complain of right upper extremity weakness. He is able to flex his right upper extremity at the elbow. He is able to move the whole extremity up against gravity slightly. 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 Power appears intact in the right lower extremity. He was ambulating around the unit with a walker. Recommendations: -Awaiting results of MRI done earlier on today. -Antiplatelet therapy with aspirin. LDL is at goal of less than 100. Triglycerides however is markedly elevated. Begin patient on gemfibrozil. -Discharge planning to alf facility for short-term rehabilitation. -Obtain psychiatric consultation if MRI results is negative for stroke or other findings that would explain his right upper extremity weakness. -He CIWA score has persistently been 0. Wean off benzodiazepine therapy.
--- NOTE | 2017-03-10 11:40 | MRI REPORT ---
EXAMINATION: MR BRAIN WITHOUT CONTRAST CLINICAL INFORMATION: 46-year-old man with right upper and lower extremity weakness. COMPARISON: 03/08/[address], 09/09/2008 brain MRI TECHNIQUE: MRI of the brain without contrast was obtained using routine sequences. FINDINGS: No focal reduced diffusion is seen to suggest acute or subacute cerebral ischemia. No intracranial mass, intracerebral edema, intra-axial blood products, midline shift, or extra-axial collection is visualized. The ventricles and sulcal spaces appear normal. Normal arterial and venous vascular flow voids are present. There is mild mucosal thickening in the ethmoid air cells and patchy opacification of bilateral mastoid air cells. IMPRESSION: Normal MR appearance of the brain.
--- NOTE | 2017-03-10 11:42 | PN- Student ---
Jason OwenLatrell 03/10/17 1132: Subjective Subjective: Cayden is a 46y male with a hx of EtOH abuse, bipolar disorder (unspecified type), schizoaffective disorder, asthma, PE currently on Pradaxa, and depression who was admitted to our floor on 03/08/17 secondary to 3/5 right sided weakness and pain in his upper extremities and lower extremities. Overnight, he stated he slept really well after seraquil was given and has no complaints otherwise. He did mention that he would like an arm sling if possible and is stressing about a ride home. Objective Objective: Physical Examination: General: AOx3, mildly lethargic with lid lag and slow speech but cooperative and polite Heart: RR, no mrg Lungs: CTAB Abdomen: Soft, nontender, normal BS Neurologic: Cognition intactCN 1-12 intact, right arm strength 3/5 plus diminished sensation to touch, temperature, and stereognosis b/l; diminished brachioradialis and biceps refles b/l; exagerrated patellar reflexes b/l; right leg strength 3/5 with diminished sensation; b/l ankle clonus; normal proprioception; normal heel-gomes, normal [id number]. Vague loss of sensation over a 3cm x 3cm area on lumbar back on right. Results Results: Laboratory Tests 03/10/17 0644: Anion Gap 15, Estimated GFR > 60, BUN/Creatinine Ratio 11.0, Magnesium 1.9 03/09/17 0010: Lactic Acid 0.9 03/08/17 1817: Lactic Acid Cancelled 03/08/17 1517: Lactic Acid Cancelled 03/08/17 1100: Troponin I < 0.01, Triglycerides 363 H, Cholesterol 208 H, LDL Cholesterol, Calc 95, HDL Cholesterol 41, Cholesterol/HDL Ratio 5 H 03/08/17 0526: Anion Gap 18 H, Estimated GFR > 60, BUN/Creatinine Ratio 8.0, Lactic Acid 3.0 H, Troponin I < 0.01, Folate 5.2, CBC w Diff MAN DIFF ORDERED, RBC 4.58 L, MCV 86.5, MCH 27.5, RDW 15.6 H, MPV 9.3, Gran % 40.5 L, Lymphocytes % 47.4, Monocytes % 8.3, Eosinophils % 3.1, Basophils % 0.7, Absolute Granulocytes 3.2, Segmented Neutrophils 32 L, Band Neutrophils 1, Absolute Lymphocytes 3.7 H, Lymphocytes 62 H, Monocytes 3, Absolute Monocytes 0.6, Eosinophils 2, Absolute Eosinophils 0.2, Absolute Basophils 0.1, Platelet Estimate ADEQUAT, Polychromasia 1+, PUBS MCHC 31.8 L 03/08/17 0310: Urine Opiates Screen < 100.00, Methadone Screen < 40, Barbiturate Screen < 60, Ur Phencyclidine Scrn < 6.00, Amphetamines Screen < 100, U Benzodiazepines Scrn < 85, Urine Cocaine Screen < 50, Urine Cannabis Screen 6.80, Urinalysis LIGHT H , Urine Color STRAW, Urine Clarity CLEAR, Urine pH 7.0, Ur Specific [place] 1.010, Urine Protein NEG, Urine Ketones NEG, Urine Nitrite NEG, Urine Bilirubin NEG, Urine Urobilinogen 0.2, Ur Leukocyte Esterase NEG, Ur Microscopic SEDIMENT EXAMINED, Urine RBC 1-3, Urine WBC 1-3 H, Ur Epithelial Cells RARE, Urine Hemoglobin SMALL H, Urine Glucose NEG 03/08/17 0127: Anion Gap 18 H, Estimated GFR > 60, BUN/Creatinine Ratio 6.4 L, Glucose 113 H , Calcium 9.8, Phosphorus 3.1, Magnesium 2.1, Total Bilirubin 0.6, AST 29, ALT 27, Alkaline Phosphatase 66, Troponin I < 0.01, Total Protein 8.2, Albumin 4.9, Globulin 3.3, Albumin/Globulin Ratio 1.5, Vitamin B12 207 L, TSH 2.740, Free T4 0.80, PT 11.4, INR 1.09, APTT 42 H, CBC w Diff NO MAN DIFF REQ, RBC 4.73, MCV 85.7, MCH 27.9, RDW 15.7 H, MPV 9.6, Gran % 51.0, Lymphocytes % 38.0, Monocytes % 7.3, Eosinophils % 2.6, Basophils % 1.1, Absolute Granulocytes 4.5, Absolute Lymphocytes 3.4, Absolute Monocytes 0.6, Absolute Eosinophils 0.2, Absolute Basophils 0.1, PUBS MCHC 32.6 L, [place] 0.7, Serum Alcohol 61.0 Microbiology 03/08 711 NASOPHARYN: Influenza Virus A & B Rapid Smear - COMP Assessment/Plan Assessment: Cayden is a 46y male with a hx of EtOH abuse, bipolar disorder (unspecified type), schizoaffective disorder, asthma, PE currently on Pradaxa, and depression who was admitted to our floor on 03/08/17 secondary to 3/5 right sided weakness and pain in his upper extremities and lower extremities. Head CT and MRI were unremarkable for lesions and neurological examination revealed vague symptoms. Furthermore, his illness course is getting progressively better; he is able to ambulate, is regaining strength in his LE, and is able to slightly raise his R arm against gravity. Although demyelinating diseases and CVA are still possible, given evidence against these psychogenic origin is most likely. 1) Hemiparesis Plan: Neuro checks q2h, continue pradaxa, continue telemetry 2) Psychological disorders Plan: Continue home medications 3) Prior PE Plan: Continue Pradaxa 4) Smoking cessation Plan: nicotine patch qd Discharge Instructions: -OP PT given negative MRI/CT -Have social work meet with him to arrange f/u care and transportation Elmer Zarate MD 03/10/17 1967: Resident Review Statement Resident Statement: examined this patient, discussed with internal medicine nurse, agreed with internal medicine nurse, discussed with family, reviewed EMR data (avail), discussed with nursing , discussed with case mgmt, reviewed images, amended to note Other Findings: clinically better, CIWA 0, on ativan taper mri negative considering psych conditions, like conversion disorders as well needs further eval awaiting neurology input obtaining medical/mental health records will f/u tomorrow
[2017-03-10 14:26] VITALS: BP 128/78
[2017-03-10 22:43] VITALS: BP 122/74
--- NOTE | 2017-03-10 22:43 | Discharge Summary ---
Visit Information Visit Dates Admission Date: 03/08/17 Discharge Date: 03/11/17 Hospital Course Course Attending Physician: Reyna Bautista MD Primary Care Physician: Jason Carver at [place], [place] Hospital Course: 46 yo M smoker with history of alcohol abuse, bipolar, schizoaffective disorder, PTSD, asthma, PE on Pradaxa, presented to the ED with complaints of right-sided upper and lower extremity weakness 5 days ago. He was admitted in the telemetry floor for the evaluation of his neurological complaints. CAT scan did not reveal any acute hemorrhage or mass lesion/effect. MRI of head was negative. No obvious reason for weakness noted. Possible differentials could be related to his mental health conditions, e.g. conversion disorder. Neurology was on board and requested Psych eval. psychiatry suggested continuing his home medication, and following up with his regular psych services at [facility] and An appointment for him. He did seem to improve in physical strength over the course of days and was moving his right upper extremity and was walking by himself without assistance by the time of discharge. He however did complain of right shoulder pain, for which she does not remember any history of trauma. The initial x-rays of the shoulder was negative for any abnormality, so an MRI of right shoulder was done which revealed 0.1 cm tear in the supraspinatus tendon, the finding, which was discussed with the patient after discussing it with the surgical PA as well as orthopedic surgeon stone dresser-- who suggested that since the patient is getting physical therapy at home from now on his will, he might benefit more from directed physical therapy of his right shoulder for small rotator cuff tear , and if there is no improvement then he would benefit from orthopedic surgery clinic follow-up. The plan was discussed with the patient, and a referral to orthopedic surgeon was provided to the patient. Patient did not have any symptoms of alcohol withdrawal during his stay at the hospital, his CIWA scores essentially being 0 all the time. Discharge disposition: Home with PT and nursing. Diet: Regular diet DVT ppx:SQ Lovenox Code status: Full code Allergies: Coded Allergies: codeine (Intermediate, HIVES 08/30/16) amoxicillin (UNKNOWN 08/30/16) desipramine (HIVES 08/30/16) Disposition Summary Disposition Principal Diagnosis: Right Upper Extremity Weakness Additional Diagnosis: alcohol abuse, bipolar, schizoaffective disorder, PTSD, asthma, PE on Pradaxa Discharge Disposition: home health services Discharge Instructions General Discharge Information Code Status: Full Code Patient's Diet: Heart healthy diet Patient's Activity: As tolerated, needs general office assistant, physical therapy will be following him at home. Follow-Up Instructions/Appts: Please follow-up with care, within a week. An appointment has been requested for you already. Please follow-up with your primary care physician, and neurology within a week after discharge. Please return to emergency if symptoms worsen Medications at Discharge Discharge Medications: Stop taking the following medications: Trazodone HCl (Trazodone HCl) 100 MG TABLET ORAL Every night Continue taking these medications: Olanzapine (Zyprexa) 7.5 MG TABLET 1 Tablet ORAL TWICE DAILY Comments: DOSE NOT GIVEN IN HOSPITAL Olanzapine (Olanzapine) 15 MG TABLET 1 Tablet ORAL Every night Comments: Last Taken: 03/11/17 Time: 6:45 PM Acamprosate Calcium (Acamprosate Calcium) 333 MG TABLET.DR 2 Tablet ORAL THREE TIMES DAILY Comments: NOT GIVEN IN HOSPITAL Benztropine Mesylate (Benztropine Mesylate) 2 MG TABLET 1 Tablet ORAL THREE TIMES DAILY Comments: Last Taken: 03/11/17 Time: 6:45 PM Gabapentin (Neurontin) 300 MG CAPSULE 1 Capsule ORAL 4 TIMES A DAY Comments: Last Taken: 03/11/17 Time: 6:45 PM [place] Carbonate (Eunola Carbonate ER) 300 MG TABLET.ER 1 Tablet ORAL DAILY Comments: Last Taken: 03/11/17 Time: 1045 AM [place] Carbonate ([place]ola Carbonate ER) 300 MG TABLET.ER 2 Tablet ORAL Every night Comments: Last Taken: 03/11/17 Time: 645 PM Haloperidol (Haloperidol) 2 MG TABLET 1 Tablet ORAL DAILY Qty = 30 Comments: Last Taken: 03/11/17 Time: 1045 AM Quetiapine Fumarate (Quetiapine Fumarate) 400 MG TABLET 1 Tablet ORAL Every night Qty = 30 Comments: 450MG DOSE Last Taken: 03/11/17 Time: 6:45 PM Quetiapine Fumarate (Quetiapine Fumarate) 50 MG TABLET 1 Tablet ORAL Every night Qty = 30 Comments: 450MG DOSE Last Taken: 03/11/17 Time: 6:45 PM Start taking the following new medications: Cyanocobalamin (Vitamin B-12) 1,000 MCG TABLET 1,000 Microgram ORAL DAILY Qty = 60 Refills = 1 Comments: Last Taken: 03/11/17 Time: 1045 AM Folic Acid (Folic Acid) 1 MG TABLET 1 Milligram ORAL DAILY Qty = 60 Refills = 1 Comments: Last Taken: 03/11/17 Time: 1045 AM Thiamine HCl (Vitamin B-1) 100 MG TABLET 100 Milligram ORAL DAILY Qty = 60 Refills = 1 Comments: Last Taken: 03/11/17 Time: 1045 AM Multivitamin (One Daily Multivitamin) 1 EACH TABLET 1 Tablet ORAL DAILY Qty = 60 Refills = 1 Comments: Last Taken: 03/11/17 Time: 1045 AM Gemfibrozil (Lopid) 600 MG TABLET 600 Milligram ORAL TWICE DAILY Qty = 90 Refills = 1 Comments: Last Taken: 03/11/17 Time: 6:45 PM Copies To: Jason Carver APRN, MD Review Statement Documenting Attending: Reyna Bautista MD Other Findings: Patient presented with complaint of right-sided weakness. Initially thought to have right upper and lower extremity weakness. He was presumed to have had a stroke however his CT and MRI did not reveal any evidence of an infarct. Giving his underlying psychiatric history conversion disorder was considered and a psychiatric consultation was placed. Recommendation was for patient to follow- up with his outpatient. Health service. Patient was followed by the physical therapy service and he was able to ambulate with the aid of walker and bear weight. On further questioning he complained only of weakness of his right upper extremity. He denies any shoulder pain. He normal passive motion. He has decreased motion with abduction. Relay Checker strength was intact in the right upper extremity and he was able to flex his elbow. In view decreased motion of the shoulder joint we decided to obtain an MRI of the shoulder. An x-ray done on admission had previously showed only evidence of some arthritis. The MRI showed small interstitial tear and small (0.1 cm deep) articular surface tear of the supraspinatus tendon. It is unclear if this injury is the cause of the right sided weakness. Call was placed to the orthopedic service and recommendation was for follow up in the outpatient setting.
[2017-03-11 06:00] VITALS: BP 120/50
--- NOTE | 2017-03-11 07:37 | PN- Housestaff ---
Elliot RIBEIRO,Elmer 03/11/17 0737: Subjective Follow-up For: Right sided weakness Complaints: no complaints Tele-Events Since Last Visit: off tele Subjective: I followed up and examined the patient today. Patient stood up by himself, but slightly move his fingers so that he could do a signature. Patient seems to be improving significantly compared to his admission date, but still complains of right shoulder pain. Review of Systems Constitutional: Reports: see HPI. Objective Last 24 Hrs of Vital Signs/I&O Vital Signs Date Time Temp Pulse Resp B/P B/P Pulse O2 O2 Flow FiO2 Mean Ox Delivery Rate 03/11 1425 97.5 86 16 122/79 96 03/11 0600 98.2 79 18 120/50 100 Intake & Output 03/12 0800 03/12 0000 03/11 1600 Intake Total 810 Output Total Balance 810 Intake, IV 10 Intake, Oral 800 Physical Exam General Appearance: Alert, Oriented X3, Cooperative, No Acute Distress, overweight Other Physical Findings: Head: Normocephalic, atraumatic Eyes: Pupils normal in size, regular, reacting to light and accommodation, EOM normal Throat/mouth: Moist mucosa Neck: Supple, full range of motion, no thyromegaly Heart: Regular rate, regular rhythm Lung: Normal breath sound bilaterally Added sound not heard Abd: Soft, non-tender, no distention appreciated Back: Normal range of motion Extremities: Normal knee exam bilaterally, no pedal edema. Right shoulder has mild focal tenderness over his rotator cuff, no distal vascular abnormalities noted. Neurologic: Alert, oriented x3, Cranial exam grossly intact, Speech is clear and coherent, Rt sided weakness IS BETTER compared to his admission date, can stand alone without support, can sign on a paper with some difficulty with his right hand, no facial changes Skin: Warm and dry Psychiatric: Calm, cooperative, coherant, no SI, no HI Current Medications: Current Medications Sig/Sebastian Start time Last Medication Dose Route Stop Time Status Admin Acetaminophen 650 MG Q6P PRN 03/08 1015 AC PO Acetaminophen 1,000 MG Q6P PRN 03/08 0445 AC IV Benztropine Mesylate 2 MG TID 03/08 1004 AC 03/10 PO 2100 Cyanocobalamin 1,000 MCG DAILY 03/09 1000 AC 03/10 PO 0943 Enoxaparin Sodium 40 MG DAILY 03/09 1716 AC 03/10 SC 0941 Folic Acid 1 MG DAILY 03/08 1000 AC 03/10 PO 0942 Gabapentin 300 MG 4 TIMES/DAY 03/08 1005 AC 03/10 PO 2100 Gemfibrozil 600 MG BID 03/10 1042 AC 03/10 PO 2100 Haloperidol 2 MG DAILY 03/08 1005 AC 03/10 PO 0941 [place] Carbonate 600 MG QPM 03/08 2200 AC 03/10 PO 2101 [place] Carbonate 300 MG DAILY 03/08 1005 AC 03/10 PO 0942 Lorazepam 0.5 MG ONE ONE 03/11 0600 DC 03/11 PO 03/11 0601 0617 Lorazepam 1 MG Q12H 03/10 1800 DC 03/10 PO 03/10 1801 1732 Lorazepam 1.5 MG Q12H 03/10 0600 DC 03/10 PO 03/10 1801 0512 Lorazepam 1 MG Q1P PRN 03/08 0530 AC IV Multivitamins 1 TAB DAILY 03/08 1000 AC 03/10 PO 0943 Nicotine 14 MG DAILY 03/08 1823 AC 03/10 TOP 1311 Olanzapine 15 MG QPM 03/08 2200 AC 03/10 PO 2100 Ondansetron HCl 4 MG Q6P PRN 03/08 0445 AC IV Quetiapine Fumarate 400 MG AT BEDTIME 03/08 2199 AC 03/10 PO 210 Quetiapine Fumarate 50 MG QPM 03/08 220 AC 03/10 PO 2100 Thiamine HCl 100 MG DAILY 03/09 1000 AC 03/10 PO 0941 Assessment/Plan Assessment: 46 yo M smoker with history of alcohol abuse, bipolar, schizoaffective disorder, PTSD, asthma, PE on Pradaxa, presented to the ED with complaints of right-sided upper and lower extremity weakness 5 days ago. He is admitted in the telemetry floor for the evaluation of his neurological complaints. CAT scan did not reveal any acute hemorrhage or mass lesion/effect. MRI of head was negative. No obvious reason for weakness noted sofar. Possible differentials could be related to his mental health conditions, e.g. conversion disorder. Neurology has been on board and has requested Psych eval. Overnight his CIWA scores has been zero. VSS. He does not appear to be in any distress and does not give any other symptoms other than right shoulder pain. In the meantime, will continue CIWA protocol and taper his Lorazepam to nil today. Patient and his girlfriend updated together about the results and next step regarding psych eval and MRI of right shoulder. Reevaluation of the patient after the right shoulder MRI was done which showed 0.1 cm tear in the supraspinatus tendon, the finding, which was discussed with the patient after discussing it with the surgical PA as well as orthopedic surgeon sap security consultant. He suggested that since the patient is getting physical therapy at home from now on his will, he might benefit more from directed physical therapy of his right shoulder for small rotator cuff tear, and if he does not improve then would benefit from orthopedic surgery clinic follow-up. The plan was discussed with the patient, and a referral to orthopedic surgeon was provided to the patient. Discharge disposition: Home with PT. Diet: Regular diet DVT ppx:SQ Lovenox Code status: Full code Problem List: 1. Right anterior shoulder pain 2. Partial tear of rotator cuff Pain Ratin Pain Location: rt shoulder Pain Goal: Pain 4 or less Pain Plan: prn Tomorrow's Labs & Rationales: -, ELIAN Bautista MD,Reyna 03/11/17 1338: Attending MD Review Statement Attending Statement Attending MD Statement: examined this patient, discuss w/resident/PA/LOAN OPERATIONS SPECIALIST, agreed w/resident/PA/LOAN OPERATIONS SPECIALIST, reviewed EMR data (avail), discussed with nursing, discussed with case mgmt, amended to note Attending Assessment/Plan: Patient seen and examined. Resting comfortably not in any acute distress. No issues overnight reported by nursing staff. Physical therapy reports that he is ambulating adequately with use of walker. Report he is able to bear weight on the walker. Patient however continues complain of right upper extreme weakness. Now he reports that her weakness is isolated to his shoulder. Lay Out Machine Operator strength is intact he is able to flex and elbow however he is unable to adequately abduct his right upper extremity. On examination he has normal range of movement passively. There is no tenderness. Evaluation by psychiatry service appreciated. Recommendations: -Recommend obtaining MRI of the right shoulder to rule out any rotator cuff injury. -If MRI is negative he may be discharged home and will undergo physical therapy at home. -If the MRI is negative impression is that his weakness may be secondary to conversion disorder as no objective etiology has been identified. The psychiatry service is recommending follow-up with his behavior care providers as an outpatient for further evaluation.
[2017-03-11] MEDS ORDERED: LOPID600 MG PO (09:46)
--- NOTE | 2017-03-11 11:56 | Cons- Psychiatry ---
Psychiatric Consult Date of Consult: 03/11/17 History of Present Illness: 46 AA M BIBA 03/08/17 with CC of right side weakness. Imaging and medical evaluation do not support a diagnosis of stroke, but MRI is expected 03/11/17 to evaluate for possible muscle or tendon injury. Allergies: Coded Allergies: codeine (Intermediate, HIVES 08/30/16) amoxicillin (UNKNOWN 08/30/16) desipramine (HIVES 08/30/16) Past History Past Medical History Neurological: NONE EENT: NONE Cardiovascular: NONE Respiratory: asthma, pulmonary embolism Gastrointestinal: NONE Hepatic: NONE Renal: NONE Musculoskeletal: NONE Psychiatric: bipolar disease, schizoprenia depression Endocrine: NONE Blood Disorders: NONE Cancer(s): NONE SUPERVISOR TILE AND MOTTLE/Reproductive: NONE Past Surgical History Surgical History: 1 Psychosocial History Strengths/Capabilities: Reported compliance with outpatient treatment and medications, as administered by visiting nurse Physical Limitations (Interventions): PE Psychiatric Treatment History Diagnosis: Schizoaffective disorder, depressed type Posttraumatic stress disorder Cannabis use disorder, mild Alcohol use disorder, moderate Risk Factors: history of Violence, history of suicide atmpts, SA/MH hospitalized , substance abuse, poor impulse control, male Assessment/Plan Impression: Alert and oriented, denies suicidal or homicidal ideation. Denies VH, but reports his usual level of command auditory hallucinations, telling him to go home, watch out, stay vigilant, but no command to hurt himself or others. He reports he feels safe here and safer at home. He is clear to discharge to home, and will need a visit from [facility] today to pour meds. He will also need an appointment with his city bus driver, Deb. Aiden APRN, at [facility] [phone], for further evaluation of possible conversion disorder. Provisional Treatment Plan: 1. Continue home psychiatric medications, but verify with [facility] that the olanzapine has been modified after the most recent med reconciliation from them. 2. A visit today, 03/11/17 for med pour 3. Make an appt with [facility], Dane Wolfe APRN within a week for evaluation of possible conversion disorder. 4. The patient and his SO are asking about PT at home. He is also asking for a sling for his right arm. Thank you for this consult
[2017-03-11 14:25] VITALS: BP 122/79
--- NOTE | 2017-03-11 15:14 | MRI REPORT ---
EXAMINATION: MR SHOULDER WITHOUT CONTRAST, RIGHT CLINICAL INFORMATION: 46-year-old male with right shoulder pain and weakness. Evaluate for rotator cuff tear. COMPARISON: Radiographs of the shoulder from 03/08/2017 TECHNIQUE: Routine noncontrast multiplanar, multisequence MR imaging examination of the right shoulder was obtained on a high-field 1.5 Emmanuelle magnet. FINDINGS: ROTATOR CUFF: No evidence of rotator cuff muscle atrophy or muscle edema. Minimal streaks of fat are seen within muscles (i.e., Goutallier grade 1 signal change). There is a very small, approximately 0.1 cm deep articular surface tear in the critical zone of the supraspinatus tendon (image 8 of 20, series 6). Also, there is a very thin interstitial tear in the distal tendon (image 10, series 6). There are no large tendon defects. Otherwise, the supraspinatus, subscapularis, infraspinatus and teres minor tendons are unremarkable. BICEPS: Long head of the biceps tendon has a normal appearance as it courses along the intertubercular sulcus of the humerus. The intra-articular segment of the biceps tendon and biceps-labral junction are normal. CORACOACROMIAL ARCH: The acromion process has a relatively flat undersurface, laterally, and there is no acromial enthesophyte, os acromiale or thickening of the coracoacromial ligament. No evidence of subacromial-subdeltoid bursitis. Mild osteophyte formation and subchondral cyst of distal clavicle at the acromioclavicular joint, and minimal subchondral marrow edema in the clavicle, as well. No clavicular fracture. LABRUM/CAPSULE: Superior, middle and inferior glenohumeral ligaments are intact. Glenoid labrum is intact. Spinoglenoid notch is normal. There appears to be a small, 0.2 cm AP ganglion cyst along the anterior surface of the glenohumeral capsule (image 12, series 3). GLENOHUMERAL JOINT/MARROW: The humeral head is well-positioned over the intact glenoid. Articular cartilage is well-preserved at the glenohumeral joint. There is subcortical cystic change in the posterolateral humeral head. IMPRESSION: 1. Small interstitial tear and small (0.1 cm deep) articular surface tear of the supraspinatus tendon. 2. No evidence of subacromial-subdeltoid bursitis. 3. Mild osteoarthritis of the acromioclavicular joint.
== END 2017-03-11 18:30 | disposition home health service (06) | DRG 948 ==
LOC: ERH 01:03 → ERHI 03:25 → 1NO 03:25 → ERHI 09:33 → ENTRNSPT 10:22 → ERHI 10:24 → EDTRNSPT 10:42 → EDTRNSPTSTS 10:42 → EDTRNSPT 10:46 → CMPTRNSPT 14:14 → ERHI 14:40 → 1NO 14:46
PROVIDERS: Emergency Medicine; Student in an Organized Health Care Education/Training Program
DX: R53.1 Weakness (principal); E87.2 Acidosis; G24.8 Other dystonia; F10.239 Alcohol dependence with withdrawal, unspecified; F20.9 Schizophrenia, unspecified; J45.909 Unspecified asthma, uncomplicated; Z86.711 Personal history of pulmonary embolism; Z79.01 Long term (current) use of anticoagulants; Y90.3 Blood alcohol level of 60-79 mg/100 ml; F32.9 Major depressive disorder, single episode, unspecified; F17.200 Nicotine dependence, unspecified, uncomplicated; F43.10 Post-traumatic stress disorder, unspecified; F12.10 Cannabis abuse, uncomplicated; S46.811A Strain of other muscles, fascia and tendons at shoulder and upper arm level, right arm, initial encounter; X58.XXXA Exposure to other specified factors, initial encounter
CPT/HCPCS: 1NSP; 70551; 73221; 36415; 71045; 73030-RT; 80307; 81001; 82436; 87804; 87804-59; 93005; 93010; 93306; 97110-GO; 97116-GO; 97161-GP; 97166-GO; 99232; G0480; J1650; J3490; J7120